=== PATIENT | female | born 1935 | race Caucasian/White ===

== ENCOUNTER → 2016-08-12 | Outpatient (CLI) | payer MEDICARE ==
[2013-09-12 06:43] VITALS: BP 153/79
[~2016-08-12] MED LIST: ASPI325T4 PO; CALC500T27 PO; LEVO125T5 PO; LORA10TA3 PO; PARO40TA3 PO; WHEA1POW5 PO
--- NOTE | 2016-08-12 13:22 | KCIC ---
PROCEDURE MR of the left knee HISTORY Surgery over 20 years ago. Pain throughout the left knee. TECHNIQUE Routine multiplanar sequences are obtained. COMPARISON None FINDINGS Degenerative tear of the medial meniscus. There is abnormal signal and mild distortion of the meniscus. Signal identified within the lateral meniscus, which does subtly violate the undersurface compatible with a mild degenerative tear. The anterior and posterior cruciate ligaments are intact. Medial collateral ligament intact. Iliotibial band unremarkable. Fibular collateral ligament demonstrates mild signal and thickening at its femoral attachment compatible with degeneration but no rupture or laxity. Biceps femoris tendon is intact. There is a high-grade tear or rupture of the popliteus tendon at the femoral attachment. The patellar tendon and quadriceps tendon are intact. Small joint effusion. Small joint effusion. No evidence of osteochondral loose body. Severe chondromalacia of the medial joint compartment. Mild chondromalacia at the posterior lateral tibial plateau. Chondromalacia at the patella, greatest superiorly where it is moderate. No bone lesion or acute macro fracture. Subchondral marrow edema, mild, at the posterior nonweightbearing lateral femoral condyle where there is overlying moderate chondromalacia. Narrow but elongated Corey cyst identified, measuring 11 cm length. Mild soft tissue edema or inflammation anterior to the patellar tendon. IMPRESSION 1. Medial meniscal tear. 2. Lateral meniscal tear. 3. Primary osteoarthritis, greatest at the medial joint compartment. 4. High-grade tear/rupture of the popliteus tendon at the femoral attachment. Electronically signed by: Irvin Wooten MD (Aug 12, 2016 13:20:15)
== END | disposition home or self-care (01) ==
LOC: KCIC MRI 11:16
PROVIDERS: ATTEND Orthopaedic Surgery
DX: M17.12 Unilateral primary osteoarthritis, left knee (principal)
CPT/HCPCS: 73721

== ENCOUNTER 2017-12-01 16:04 | Emergency (ER) | payer MEDICARE ==
[2017-12-01 18:02] LABS: ADD MAN DIFF? NO
[2017-12-01 18:05] LABS: BASO # 0.1 x10^3/uL (0.0-0.2); BASO % 1 % (0-3); EOS # 0.1 x10^3/uL (0.0-0.7); EOS % 1 % (0-3); HEMATOCRIT 36.2 % (36.0-47.0); HEMOGLOBIN 12.3 g/dL (12.0-15.5); LYMPH % 16 % (24-48); MEAN CORPUSCULAR HEMOGLOBIN 29 pg (25-35); MEAN CORPUSCULAR HGB CONC 34 g/dL (31-37); MEAN CORPUSCULAR VOLUME 85 fL (79-100); MONO # 1.4 x10^3/uL (0.0-1.1); MONO % 11 % (0-9); NEUT # 9.4 x10^3uL (1.8-7.7); NEUT % 72 % (31-73); PLATELET COUNT 369 x10^3/uL (140-400); RED BLOOD COUNT 4.25 x10^6/uL (3.50-5.40); RED CELL DISTRIBUTION WIDTH 13.2 % (11.5-14.5)
[2017-12-01] MEDS: IV NORMAL SALINE 1000ML BAG 500 ML IV (18:10)
[2017-12-01] MEDS: IPRATRPIUM/ALBUTEROL 0.5/2.5MG 3 ML NEBU. NEB (18:13)
[2017-12-01 18:22] LABS: ANION GAP 10 (6-14); BLOOD UREA NITROGEN 9 mg/dL (7-20); CALCIUM 9.7 mg/dL (8.5-10.1); CARBON DIOXIDE 26 mmol/L (21-32); CHLORIDE 98 mmol/L (98-107); GLUCOSE 111 mg/dL (70-99); POTASSIUM 3.7 mmol/L (3.5-5.1); SODIUM 134 mmol/L (136-145)
== END 2017-12-01 19:36 | disposition home or self-care (01) ==
LOC: ER 16:04
DX: J18.1 Lobar pneumonia, unspecified organism (principal); Z88.0 Allergy status to penicillin; Z88.5 Allergy status to narcotic agent; Z88.8 Allergy status to other drugs, medicaments and biological substances; Z88.4 Allergy status to anesthetic agent
CPT/HCPCS: 36415; 71046; 80048; 85025; 94640; 99285-25; J7030; J7620

== ENCOUNTER 2018-03-10 13:28 | Inpatient (IN) | payer MEDICARE ==
[~2018-03-10] VITALS: Ht 157.5 cm; Wt 64.4 kg
[~2018-03-10 13:28] MED LIST changes: -ASPI325T4 PO; +ASPI325T8 PO; -CALC500T27 PO; +CALC500T30 PO; +LEVO750T31 PO
[2018-03-10] MEDS ORDERED: IV NORMAL SALINE 1000ML BAG 1,000 ML IV SCH (13:51)
[2018-03-10] MEDS ORDERED: IOHEXOL 300 MG/ML 100ML VIAL. IV ONE (14:00)
[2018-03-10] MEDS ORDERED: CONTRAST GIVEN. MC PRN (14:15)
[2018-03-10 14:31] LABS: BASO # 0.1 x10^3/uL (0.0-0.2); BASO % 0 % (0-3); EOS # 0.1 x10^3/uL (0.0-0.7); EOS % 0 % (0-3); HEMATOCRIT 44.7 % (36.0-47.0); HEMOGLOBIN 14.7 g/dL (12.0-15.5); LYMPH # 2.2 x10^3/uL (1.0-4.8); LYMPH % 8 % (24-48); MEAN CORPUSCULAR HEMOGLOBIN 28 pg (25-35); MEAN CORPUSCULAR HGB CONC 33 g/dL (31-37); MEAN CORPUSCULAR VOLUME 84 fL (79-100); MONO # 1.2 x10^3/uL (0.0-1.1); MONO % 5 % (0-9); NEUT # 22.3 x10^3uL (1.8-7.7); NEUT % 86 % (31-73); PLATELET COUNT 416 x10^3/uL (140-400); RED BLOOD COUNT 5.29 x10^6/uL (3.50-5.40); RED CELL DISTRIBUTION WIDTH 15.5 % (11.5-14.5); WHITE BLOOD COUNT 25.9 x10^3/uL (4.0-11.0)
[2018-03-10 14:46] LABS: ALBUMIN 4.5 g/dL (3.4-5.0); DIRECT BILIRUBIN 0.1 mg/dL (0.0-0.2); TOTAL BILIRUBIN 0.4 mg/dL (0.2-1.0); TOTAL PROTEIN 8.8 g/dL (6.4-8.2)
[2018-03-10 14:47] LABS: CREATININE ISTAT 0.8 mg/dL (0.5-1.4); HEMOGLOBIN ISTAT 9.2 g/dL (12-15); ION CA ISTAT 0.8 mmol/L (1.13-1.32); POTASSIUM ISTAT 2.9 mmol/L (3.5-5.0)
[2018-03-10] MEDS ORDERED: POTASSIUM CHLORIDE 20 MEQ TABLET.ER. PO ONE (15:00)
[2018-03-10] MEDS ORDERED: POTASSIUM CHLORIDE 20MEQ 50 ML IV SCH (15:00)
[2018-03-10 15:15] LABS: % BANDS 1 % (0-9); % LYMPHS 7 % (24-48); % MONOS 5 % (0-10); % SEGS 87 % (35-66); MAGNESIUM 2.4 mg/dL (1.8-2.4); POTASSIUM 3.8 mmol/L (3.5-5.1)
[2018-03-10 15:17] LABS: PLT ESTIMATE ADEQUATE (ADEQUATE)
[2018-03-10 15:20] LABS: CALCIUM 10.2 mg/dL (8.5-10.1); CREATININE 1.5 mg/dL (0.6-1.0); GFR 33.1; POTASSIUM 3.8 mmol/L (3.5-5.1)
--- NOTE | 2018-03-10 15:23 | PHYS DOC ---
Past Medical History Past Medical History: Pneumonia Additional Past Medical Histor: BOWEL OBSTRUCTIONS Past Surgical History: No Surgical History Additional Past Surgical Histo: MUTILPE BOWEL SURGERIES Alcohol Use: None Drug Use: None Adult General Chief Complaint Chief Complaint: DIARRHEA HPI HPI Patient is an 83-year-old female presents to the emergency department, along with her son. The patient's son states that the patient was recently diagnosed with pneumonia and had been on antibiotics a few weeks ago, and has been getting increasingly weak over the past few days. She developed some diarrhea today, up to about 8-10 times since this morning. The patient does report some mild generalized abdominal soreness. There've been no reports of vomiting, fever , chest pain, and the patient has not had any more coughing recently, and is not more short of breath than normal. She has not had any fevers or chills. There are no alleviating, or exacerbating factors to her symptoms. The patient is somewhat of a limited historian, secondary to what appears to be underlying confusion. Review of Systems Review of Systems Constitutional: Denies fever or chills [] Eyes: Denies change in visual acuity, redness, or eye pain [] HENT: Denies nasal congestion or sore throat [] Respiratory: Denies cough or shortness of breath [] Cardiovascular: The patient denies any shortness of breath, chest pain, palpitations, or orthopnea [] GI: No additional information not addressed in HPI [] : Denies dysuria or hematuria [] Musculoskeletal: Denies back pain or joint pain [] Integument: Denies rash or skin lesions [] Neurologic: Denies headache, focal weakness or sensory changes. Reports some generalized weakness. [] Endocrine: Denies polyuria or polydipsia [] All other systems were reviewed and found to be within normal limits, except as documented in this note. Current Medications Current Medications Current Medications Medications (Trade) Dose Ordered Sig/Emily Start Time Stop Time Status Last Admin Dose Admin Info (CONTRAST GIVEN -- Rx MONITORING) 1 each PRN DAILY PRN 03/10/18 14:15 03/12/18 14:14 Iohexol (Omnipaque 300 Mg/ml) 75 ml 1X ONCE 03/10/18 14:00 03/10/18 14:01 DC 03/10/18 14:00 75 ML Potassium Chloride 40 meq/ Sodium Chloride 520 ml @ 130 mls/hr ONCE ONCE 03/10/18 15:30 03/10/18 15:35 DC Potassium Chloride/Water 50 ml @ 50 mls/hr Q1H 03/10/18 15:00 03/10/18 16:59 UNV Potassium Chloride (Klor-Con) 40 meq 1X ONCE 03/10/18 15:00 03/10/18 15:35 DC Ringer's Solution 1,000 ml @ 125 mls/hr 1X ONCE 03/10/18 15:45 03/10/18 23:44 Sodium Chloride 500 ml @ 125 mls/hr ONCE ONCE 03/10/18 15:30 03/10/18 15:30 DC Allergies Allergies Allergies Coded Allergies Type Severity Reaction Last Updated Verified Penicillins Allergy Intermediate 09/07/13 Yes codeine Allergy Intermediate 09/07/13 Yes morphine Allergy Intermediate Hives 09/07/13 No piroxicam Allergy Intermediate 09/07/13 Yes procaine Allergy Intermediate 09/07/13 Yes propoxyphene Allergy Intermediate 09/07/13 Yes Physical Exam Physical Exam PHYSICAL EXAM: CONSTITUTIONAL: Well developed, well nourished HEAD: normocephalic, atraumatic EENT: PERRL, EOMI. there is a small left-sided subconjunctival hemorrhage, the remainder of the conjunctivae are normal,sclerae non-icteric; moist mucous membranes. NECK: Supple, non-tender; no meningismus. LUNGS: Lungs CTA, breathing even and unlabored. Normal air movement. HEART: Regular rate and rhythm, no murmur CHEST: No deformity; non-tender ABDOMEN: The abdomen is soft, normal bowel sounds are present, there is mild diffuse tenderness to palpation in the mid left abdomen, without rebound or guarding, no masses or bruits. EXTREM: Normal ROM; no deformity, no calf tenderness. Normal pulses palpable in all extremities. There is no pedal edema. SKIN: No rash; no diaphoresis NEURO: Alert; normal speech and cognition; CN's grossly intact; strength grossly intact without focal deficit. BACK: No CVA TTP. Current Patient Data Vital Signs Vital Signs Date Time Temp Pulse Resp B/P (MAP) Pulse Ox O2 Delivery O2 Flow Rate FiO2 03/10/18 14:00 98.3 84 18 161/90 (113) 99 Room Air 98.3 Lab Values Laboratory Tests Test 03/10/18 14:15 03/10/18 14:39 White Blood Count 25.9 x10^3/uL (4.0-11.0) H Red Blood Count 5.29 x10^6/uL (3.50-5.40) Hemoglobin 14.7 g/dL (12.0-15.5) Hematocrit 44.7 % (36.0-47.0) Mean Corpuscular Volume 84 fL (79-100) Mean Corpuscular Hemoglobin 28 pg (25-35) Mean Corpuscular Hemoglobin Concent 33 g/dL (31-37) Red Cell Distribution Width 15.5 % (11.5-14.5) H Platelet Count 416 x10^3/uL (140-400) H Neutrophils (%) (Auto) 86 % (31-73) H Lymphocytes (%) (Auto) 8 % (24-48) L Monocytes (%) (Auto) 5 % (0-9) Eosinophils (%) (Auto) 0 % (0-3) Basophils (%) (Auto) 0 % (0-3) Neutrophils # (Auto) 22.3 x10^3uL (1.8-7.7) H Lymphocytes # (Auto) 2.2 x10^3/uL (1.0-4.8) Monocytes # (Auto) 1.2 x10^3/uL (0.0-1.1) H Eosinophils # (Auto) 0.1 x10^3/uL (0.0-0.7) Basophils # (Auto) 0.1 x10^3/uL (0.0-0.2) Segmented Neutrophils % 87 % (35-66) H Band Neutrophils % 1 % (0-9) Lymphocytes % 7 % (24-48) L Monocytes % 5 % (0-10) Platelet Estimate Adequate (ADEQUATE) Sodium Level 141 mmol/L (136-145) Potassium Level 3.8 mmol/L (3.5-5.1) Chloride Level 99 mmol/L (98-107) Carbon Dioxide Level 25 mmol/L (21-32) Anion Gap 17 (6-14) H 16 mmol/L (6-14) H Blood Urea Nitrogen 18 mg/dL (7-20) Creatinine 1.5 mg/dL (0.6-1.0) H Estimated GFR (Cockcroft-Gault) 33.1 Glucose Level 119 mg/dL (70-99) H 85 mg/dL (70-99) Lactic Acid Level 2.1 mmol/L (0.4-2.0) H Calcium Level 10.2 mg/dL (8.5-10.1) H Magnesium Level 2.4 mg/dL (1.8-2.4) Total Bilirubin 0.4 mg/dL (0.2-1.0) Direct Bilirubin 0.1 mg/dL (0.0-0.2) Aspartate Amino Transferase (AST) 34 U/L (15-37) Alanine Aminotransferase (ALT) 32 U/L (14-59) Alkaline Phosphatase 116 U/L (46-116) Total Protein 8.8 g/dL (6.4-8.2) H Albumin 4.5 g/dL (3.4-5.0) Lipase 290 U/L (73-393) POC Hemoglobin 9.2 g/dL (12-15) L POC Hematocrit 27 % (36-40) L POC Sodium 147 mmol/L (135-145) H POC Potassium 2.9 mmol/L (3.5-5.0) L POC Chloride 115 mmol/L (98-110) H POC Total CO2 20 mmol/L (23-32) L POC Blood Urea Nitrogen 14 mg/dL (8-26) POC Creatinine 0.8 mg/dL (0.5-1.4) POC Ionized Calcium (Margot) 0.80 mmol/L (1.13-1.32) L Laboratory Tests 03/10/18 14:15 Laboratory Tests 03/10/18 14:15 03/10/18 14:39 EKG EKG [] Radiology/Procedures Radiology/Procedures PROCEDURE: CT ABD PELV W/ IV CONTRST ONLY Examination: CT of the abdomen pelvis with IV contrast HISTORY: History of abdominal pain, diarrhea COMPARISON: 09/05/2013 TECHNIQUE: Axial CT images of the abdomen pelvis were performed with IV contrast. Coronal and sagittal reformats are performed Exposure: One or more of the following individualized dose reduction techniques were utilized for this examination: 1. Automated exposure control 2. Adjustment of the mA and/or kV according to patient size 3. Use of iterative reconstruction technique FINDINGS: Mild emphysematous changes identified in the bibasilar lungs. Bibasilar lung airspace opacities likely atelectasis. No evidence of free air identified in the abdomen. The visualized liver, spleen, adrenals grossly appears unremarkable. Cholecystectomy clips identified. Horseshoe kidney identified. The bilateral kidneys enhance symmetrically Multiple dilated small bowel loops identified in the abdomen measuring up to 4.5 cm in transverse dimension. There is a transition point identified just proximal to the anterior abdominal ventral hernia containing small bowel loop. There is extension of the dilated small bowel loop in the left lateral ventricle hernia. This hernia also contains loop of large bowel. Moderate aortic atherosclerosis. Urinary bladder is mildly distended. Moderate degenerative changes lumbar spine. IMPRESSION: 1. Findings consistent with small bowel obstruction. There are multiple dilated small bowel loops identified within the abdomen. There is anterior abdominal wall midline ventral hernia containing loop of small bowel. A transition point is identified in the small bowel loop just proximal to the anterior abdominal wall hernia containing bowel loop, best visualized on series 2 image 64. A portion of the dilated small bowel loop is herniated also into the left lateral ventricle hernia. 2. Horseshoe kidney. 3. Moderate size hiatal hernia. Course & Med Decision Making Course & Med Decision Making Pertinent Labs and Imaging studies reviewed. (See chart for details) [3:00 PM: I reviewed the patient's CT images, reading from the radiologist is currently pending. It appears to me that the patient has a small bowel obstruction, related to her hernia in the left lower quadrant. This was not palpable on initial exam, it is some laxity in the patient's abdominal wall soft tissues, although] on repeat exam, there is a palpable hernia, which appears to be easily reduced. However appears to slide out easily with additional increased abdominal pressure. I initially requested an i-STAT be performed to expedite the patient's passage to CT scan, but this was not initially performed by the nurse. After realizing this, the nurse went and redrew an i-STAT from the IV which had been saline lock. The patient's hemoglobin on the i-STAT is 9.2, which is a discrepancy compared to her values on the CBC from lab, which was from the patient's initial stick. Her potassium is low on the i-STAT, I suspect the values on the ice and might be related to saline contamination. Thus, I will order a basic chemistry panel from the blood sent to lab on the original blood stick, to confirm the patient's left her lites. I discussed the case both with her PCP, Dr. Valencia, as well as Dr. Call, on-call for the patient's surgeon, Dr. Gonzalez , the patient will be admitted for further evaluation and treatment. 3:50 PM: The patient's condition remains relatively stable. The patient will be admitted. Dragon Disclaimer Dragon Disclaimer This electronic medical record was generated, in whole or in part, using a voice recognition dictation system. Departure Departure Impression: Primary Impression: Small bowel obstruction Additional Impression: Abdominal hernia Disposition: ADMITTED INPATIENT Admitting Physician: Yamilet Valencia Condition: STABLE Referrals: YAMILET VALENCIA MD (PCP) Problem Qualifiers RADHA BLACKMON MD Mar 10, 2018 15:23
[2018-03-10] MEDS ORDERED: POTASSIUM CHLORIDE 40 MEQ in IV NORMAL SALINE 500ML BAG 500 ML IV ONE (15:30)
[2018-03-10] MEDS ORDERED: IV NORMAL SALINE 500ML BAG 500 ML IV ONE (15:30)
--- NOTE | 2018-03-10 15:32 | RAD ---
Examination: CT of the abdomen pelvis with IV contrast HISTORY: History of abdominal pain, diarrhea COMPARISON: 09/05/2013 TECHNIQUE: Axial CT images of the abdomen pelvis were performed with IV contrast. Coronal and sagittal reformats are performed Exposure: One or more of the following individualized dose reduction techniques were utilized for this examination: 1. Automated exposure control 2. Adjustment of the mA and/or kV according to patient size 3. Use of iterative reconstruction technique FINDINGS: Mild emphysematous changes identified in the bibasilar lungs. Bibasilar lung airspace opacities likely atelectasis. No evidence of free air identified in the abdomen. The visualized liver, spleen, adrenals grossly appears unremarkable. Cholecystectomy clips identified. Horseshoe kidney identified. The bilateral kidneys enhance symmetrically Multiple dilated small bowel loops identified in the abdomen measuring up to 4.5 cm in transverse dimension. There is a transition point identified just proximal to the anterior abdominal ventral hernia containing small bowel loop. There is extension of the dilated small bowel loop in the left lateral ventricle hernia. This hernia also contains loop of large bowel. Moderate aortic atherosclerosis. Urinary bladder is mildly distended. Moderate degenerative changes lumbar spine. IMPRESSION: 1. Findings consistent with small bowel obstruction. There are multiple dilated small bowel loops identified within the abdomen. There is anterior abdominal wall midline ventral hernia containing loop of small bowel. A transition point is identified in the small bowel loop just proximal to the anterior abdominal wall hernia containing bowel loop, best visualized on series 2 image 64. A portion of the dilated small bowel loop is herniated also into the left lateral ventricle hernia. 2. Horseshoe kidney. 3. Moderate size hiatal hernia. Electronically signed by: Rom Ellis MD (03/10/2018 3:28 PM) [place] [id number]
[2018-03-10] MEDS ORDERED: IV RINGERS,LACTATED 1000ML 1,000 ML IV ONE (15:45)
[2018-03-10 19:15] VITALS: BP 153/77
[2018-03-10] MEDS ORDERED: fentaNYL PF VIAL 100 MCG/2 ML VIAL IV PRN (21:00)
[2018-03-10] MEDS ORDERED: C.DIFF MED SCREEN BY RX. MC ONE (21:30)
[2018-03-10 23:00] VITALS: BP 136/64
[2018-03-10] MEDS ORDERED: ASPI81TA50 PO (23:40)
[2018-03-10] MEDS ORDERED: POLY17PO29 PO ×2 (23:40)
[2018-03-10] MEDS ORDERED: LACT1CAP21 PO (23:40)
[2018-03-10] MEDS ORDERED: LEVO75TA5 PO (23:40)
[2018-03-10] MEDS ORDERED: CALC600T4 PO (23:40)
[2018-03-10] MEDS ORDERED: MULT-98 PO (23:40)
[2018-03-11 03:00] VITALS: BP 143/80
[2018-03-11 07:00] VITALS: BP 128/65
--- NOTE | 2018-03-11 07:54 | PDOC ---
PROGRESS NOTES Subjective Subjective Patient denies nausea or abdominal pain at this time. Objective Objective Vital Signs Date Time Temp Pulse Resp B/P (MAP) Pulse Ox O2 Delivery O2 Flow Rate FiO2 03/11/18 03:00 98.0 81 20 143/80 (101) 96 98.0 03/10/18 21:30 Room Air Intake and Output 03/11/18 07:00 Intake Total 0 ml Balance 0 ml Intake Oral 0 ml # Voids 2 Physical Exam Abdomen: Normal bowel sounds, Soft, Other (large soft hernia left abdomen, diffuse TTP without guarding or rebound) Heart: Regular rate Extremities: No edema General: Alert, Oriented X3 (somewhat forgetful), No acute distress Lungs: Clear to auscultation Assessment Assessment Problems Medical Problems: (1) Abdominal hernia Status: Acute (2) Small bowel obstruction Status: Acute Plan Plan of Care 1. SBO with abdominal hernia - good BS present. Continue NPO and start IVF for hydration. Await General Surgery consult. Negative for C difficile. 2. hypokalemia - recheck lab this AM and supplement if needed. 3. hypothyroidism - continue home medication. 4. chronic depression and anxiety - stable, continue Paxil. 5. mild memory loss - patient appears at baseline, continue supportive care. 6. glucose intolerance - has been diet-controlled for her. Comment Review of Relevant I have reviewed the following items sima (where applicable) has been applied. Labs Laboratory Tests Test 03/10/18 13:51 03/10/18 14:15 03/10/18 14:39 Clostridium difficile Toxin B Gene Negative (Negative) White Blood Count 25.9 x10^3/uL (4.0-11.0) Red Blood Count 5.29 x10^6/uL (3.50-5.40) Hemoglobin 14.7 g/dL (12.0-15.5) Hematocrit 44.7 % (36.0-47.0) Mean Corpuscular Volume 84 fL (79-100) Mean Corpuscular Hemoglobin 28 pg (25-35) Mean Corpuscular Hemoglobin Concent 33 g/dL (31-37) Red Cell Distribution Width 15.5 % (11.5-14.5) Platelet Count 416 x10^3/uL (140-400) Neutrophils (%) (Auto) 86 % (31-73) Lymphocytes (%) (Auto) 8 % (24-48) Monocytes (%) (Auto) 5 % (0-9) Eosinophils (%) (Auto) 0 % (0-3) Basophils (%) (Auto) 0 % (0-3) Neutrophils # (Auto) 22.3 x10^3uL (1.8-7.7) Lymphocytes # (Auto) 2.2 x10^3/uL (1.0-4.8) Monocytes # (Auto) 1.2 x10^3/uL (0.0-1.1) Eosinophils # (Auto) 0.1 x10^3/uL (0.0-0.7) Basophils # (Auto) 0.1 x10^3/uL (0.0-0.2) Segmented Neutrophils % 87 % (35-66) Band Neutrophils % 1 % (0-9) Lymphocytes % 7 % (24-48) Monocytes % 5 % (0-10) Platelet Estimate Adequate (ADEQUATE) Sodium Level 141 mmol/L (136-145) Potassium Level 3.8 mmol/L (3.5-5.1) Chloride Level 99 mmol/L (98-107) Carbon Dioxide Level 25 mmol/L (21-32) Anion Gap 17 (6-14) 16 mmol/L (6-14) Blood Urea Nitrogen 18 mg/dL (7-20) Creatinine 1.5 mg/dL (0.6-1.0) Estimated GFR (Cockcroft-Gault) 33.1 Glucose Level 119 mg/dL (70-99) 85 mg/dL (70-99) Lactic Acid Level 2.1 mmol/L (0.4-2.0) Calcium Level 10.2 mg/dL (8.5-10.1) Magnesium Level 2.4 mg/dL (1.8-2.4) Total Bilirubin 0.4 mg/dL (0.2-1.0) Direct Bilirubin 0.1 mg/dL (0.0-0.2) Aspartate Amino Transf (AST/SGOT) 34 U/L (15-37) Alanine Aminotransferase (ALT/SGPT) 32 U/L (14-59) Alkaline Phosphatase 116 U/L (46-116) Total Protein 8.8 g/dL (6.4-8.2) Albumin 4.5 g/dL (3.4-5.0) Lipase 290 U/L (73-393) Bedside Hemoglobin 9.2 g/dL (12-15) Bedside Hematocrit 27 % (36-40) Bedside Sodium 147 mmol/L (135-145) Bedside Potassium 2.9 mmol/L (3.5-5.0) Bedside Chloride 115 mmol/L (98-110) Bedside Total CO2 20 mmol/L (23-32) Bedside Blood Urea Nitrogen 14 mg/dL (8-26) Bedside Creatinine 0.8 mg/dL (0.5-1.4) Bedside Ionized Calcium (Margot) 0.80 mmol/L (1.13-1.32) Laboratory Tests Test 03/10/18 13:51 03/10/18 14:15 03/10/18 14:39 Clostridium difficile Toxin B Gene Negative (Negative) White Blood Count 25.9 x10^3/uL (4.0-11.0) Red Blood Count 5.29 x10^6/uL (3.50-5.40) Hemoglobin 14.7 g/dL (12.0-15.5) Hematocrit 44.7 % (36.0-47.0) Mean Corpuscular Volume 84 fL (79-100) Mean Corpuscular Hemoglobin 28 pg (25-35) Mean Corpuscular Hemoglobin Concent 33 g/dL (31-37) Red Cell Distribution Width 15.5 % (11.5-14.5) Platelet Count 416 x10^3/uL (140-400) Neutrophils (%) (Auto) 86 % (31-73) Lymphocytes (%) (Auto) 8 % (24-48) Monocytes (%) (Auto) 5 % (0-9) Eosinophils (%) (Auto) 0 % (0-3) Basophils (%) (Auto) 0 % (0-3) Neutrophils # (Auto) 22.3 x10^3uL (1.8-7.7) Lymphocytes # (Auto) 2.2 x10^3/uL (1.0-4.8) Monocytes # (Auto) 1.2 x10^3/uL (0.0-1.1) Eosinophils # (Auto) 0.1 x10^3/uL (0.0-0.7) Basophils # (Auto) 0.1 x10^3/uL (0.0-0.2) Segmented Neutrophils % 87 % (35-66) Band Neutrophils % 1 % (0-9) Lymphocytes % 7 % (24-48) Monocytes % 5 % (0-10) Platelet Estimate Adequate (ADEQUATE) Sodium Level 141 mmol/L (136-145) Potassium Level 3.8 mmol/L (3.5-5.1) Chloride Level 99 mmol/L (98-107) Carbon Dioxide Level 25 mmol/L (21-32) Anion Gap 17 (6-14) 16 mmol/L (6-14) Blood Urea Nitrogen 18 mg/dL (7-20) Creatinine 1.5 mg/dL (0.6-1.0) Estimated GFR (Cockcroft-Gault) 33.1 Glucose Level 119 mg/dL (70-99) 85 mg/dL (70-99) Lactic Acid Level 2.1 mmol/L (0.4-2.0) Calcium Level 10.2 mg/dL (8.5-10.1) Magnesium Level 2.4 mg/dL (1.8-2.4) Total Bilirubin 0.4 mg/dL (0.2-1.0) Direct Bilirubin 0.1 mg/dL (0.0-0.2) Aspartate Amino Transf (AST/SGOT) 34 U/L (15-37) Alanine Aminotransferase (ALT/SGPT) 32 U/L (14-59) Alkaline Phosphatase 116 U/L (46-116) Total Protein 8.8 g/dL (6.4-8.2) Albumin 4.5 g/dL (3.4-5.0) Lipase 290 U/L (73-393) Bedside Hemoglobin 9.2 g/dL (12-15) Bedside Hematocrit 27 % (36-40) Bedside Sodium 147 mmol/L (135-145) Bedside Potassium 2.9 mmol/L (3.5-5.0) Bedside Chloride 115 mmol/L (98-110) Bedside Total CO2 20 mmol/L (23-32) Bedside Blood Urea Nitrogen 14 mg/dL (8-26) Bedside Creatinine 0.8 mg/dL (0.5-1.4) Bedside Ionized Calcium (Margot) 0.80 mmol/L (1.13-1.32) Medications Current Medications Sodium Chloride 1,000 ml @ 100 mls/hr Q10H IV Last administered on 03/10/18at 13:51; Start 03/10/18 at 13:51; Stop 03/10/18 at 23:50; Status DC Iohexol (Omnipaque 300 Mg/ml) 75 ml 1X ONCE IV Last administered on 03/10/18at 14:00; Start 03/10/18 at 14:00; Stop 03/10/18 at 14:01; Status DC Info (CONTRAST GIVEN -- Rx MONITORING) 1 each PRN DAILY PRN MC SEE COMMENTS; Start 03/10/18 at 14:15; Stop 03/12/18 at 14:14 Potassium Chloride (Klor-Con) 40 meq 1X ONCE PO ; Start 03/10/18 at 15:00; Stop 03/10/18 at 15:35; Status DC Potassium Chloride/Water 50 ml @ 50 mls/hr Q1H IV ; Start 03/10/18 at 15:00; Stop 03/10/18 at 16:59; Status UNV Sodium Chloride 500 ml @ 125 mls/hr ONCE ONCE IV ; Start 03/10/18 at 15:30; Stop 03/10/18 at 15:30; Status DC Potassium Chloride 40 meq/ Sodium Chloride 520 ml @ 130 mls/hr ONCE ONCE IV ; Start 03/10/18 at 15:30; Stop 03/10/18 at 15:35; Status DC Ringer's Solution 1,000 ml @ 125 mls/hr 1X ONCE IV ; Start 03/10/18 at 15:45; Stop 03/10/18 at 23:44; Status DC Fentanyl Citrate (Fentanyl 2ml Vial) 25 mcg PRN Q2HR PRN IV SEVERE PAIN Last administered on 03/10/18at 21:00; Start 03/10/18 at 21:00 Ondansetron HCl (Zofran) 4 mg PRN Q6HRS PRN IV NAUSEA/VOMITING 1ST CHOICE; Start 03/10/18 at 21:00 Pharmacy Consult (C.diff Med Screen By Rx) 1 each 1X ONCE MC ; Start 03/10/18 at 21:30; Stop 03/10/18 at 21:31; Status DC Potassium Chloride/Dextrose/ Sod Cl 1,000 ml @ 100 mls/hr Q10H IV ; Start 03/11 at 07:45 Active Scripts Active Reported Culturelle (Lactobacillus Rhamnosus Gg) 1 Each Capsule 1-2 Each PO PRN DAILY PRN Calcium (Calcium Carbonate) 600 Mg Tablet 600 Mg PO BID Women's Daily Formula (Multivit With Calcium,Iron,Min) 1 Each Tablet 1 Each PO DAILY Miralax (Polyethylene Glycol 3350) 17 Gm Powd.pack 1 Packet PO PRN DAILY PRN Levothyroxine Sodium 75 Mcg Tablet 1 Tab PO DAILY Aspir-Low (Aspirin) 81 Mg Tablet. 1 Tab PO DAILY Paroxetine Hcl 40 Mg Tablet 60 Mg PO DAILY Loratadine 10 Mg Tablet 10 Mg PO DAILY Vitals/I & O Vital Sign - Last 24 Hours 03/10/18 03/10/18 03/10/18 03/10/18 14:00 15:00 16:00 17:00 Temp 98.3 98.3 Pulse 84 80 80 82 Resp 18 17 13 14 B/P (MAP) 161/90 (113) 150/65 (93) 150/70 (96) 150/65 (93) Pulse Ox 99 99 97 99 O2 Delivery Room Air Room Air Room Air Room Air 03/10/18 03/10/18 03/10/18 03/10/18 18:00 19:15 20:00 21:00 Temp 98.3 98.3 Pulse 82 82 Resp 14 20 16 B/P (MAP) 141/78 (99) 153/77 (102) Pulse Ox 98 98 98 O2 Delivery Room Air Room Air Room Air 03/10/18 03/10/18 03/11/18 21:30 23:00 03:00 Temp 99.2 98.0 99.2 98.0 Pulse 80 81 Resp 15 18 20 B/P (MAP) 136/64 (88) 143/80 (101) Pulse Ox 98 96 96 O2 Delivery Room Air Intake and Output 03/10/18 03/10/18 03/11/18 15:00 23:00 07:00 Intake Total 0 ml 0 ml Balance 0 ml 0 ml ERIKA WALSH MD Mar 11, 2018 07:54
--- NOTE | 2018-03-11 08:12 | PDOC2 ---
LINDSAY JAMISON CHEMICAL DEPENDENCY THERAPIST 03/11/18 0812: CONSULT Date of Consult Date of Consult DATE: 03/11/18 TIME: 08:00 Reason for Consult Reason for Consult: sbo, hernias Referring Physician Referring Physician: ER Identification/Chief Complaint Chief Complaint diarrhea Source Source: Caregiver (son), Chart review, Patient History of Present Illness Reason for Visit: Admitted with multiple episodes of diarrhea yesterday. abrupt onset of diarrhea , no real significant pain. She has a history of multiple bowel obstructions, multiple abdominal surgeries. Last operated [address] Peña Currently no pain, no n/v Past Medical History Pulmonary: Pneumonia Endocrine: Diabetes, Hypothyroidism Past Surgical History Past Surgical History: Hernia Repair Family History Family History: Other (noncontributory to current illness ) Social History No ALCOHOL: none Drugs: None Lives: with Family Current Problem List Problem List Problems Medical Problems: (1) Abdominal hernia Status: Acute (2) Small bowel obstruction Status: Acute Current Medications Current Medications Current Medications Sodium Chloride 1,000 ml @ 100 mls/hr Q10H IV Last administered on 03/10/18at 13:51; Start 03/10/18 at 13:51; Stop 03/10/18 at 23:50; Status DC Iohexol (Omnipaque 300 Mg/ml) 75 ml 1X ONCE IV Last administered on 03/10/18at 14:00; Start 03/10/18 at 14:00; Stop 03/10/18 at 14:01; Status DC Info (CONTRAST GIVEN -- Rx MONITORING) 1 each PRN DAILY PRN MC SEE COMMENTS; Start 03/10/18 at 14:15; Stop 03/12/18 at 14:14 Potassium Chloride (Klor-Con) 40 meq 1X ONCE PO ; Start 03/10/18 at 15:00; Stop 03/10/18 at 15:35; Status DC Potassium Chloride/Water 50 ml @ 50 mls/hr Q1H IV ; Start 03/10/18 at 15:00; Stop 03/10/18 at 16:59; Status UNV Sodium Chloride 500 ml @ 125 mls/hr ONCE ONCE IV ; Start 03/10/18 at 15:30; Stop 03/10/18 at 15:30; Status DC Potassium Chloride 40 meq/ Sodium Chloride 520 ml @ 130 mls/hr ONCE ONCE IV ; Start 03/10/18 at 15:30; Stop 03/10/18 at 15:35; Status DC Ringer's Solution 1,000 ml @ 125 mls/hr 1X ONCE IV ; Start 03/10/18 at 15:45; Stop 03/10/18 at 23:44; Status DC Fentanyl Citrate (Fentanyl 2ml Vial) 25 mcg PRN Q2HR PRN IV SEVERE PAIN Last administered on 03/10/18at 21:00; Start 03/10/18 at 21:00; Stop 03/11/18 at 07:57 ; Status DC Ondansetron HCl (Zofran) 4 mg PRN Q6HRS PRN IV NAUSEA/VOMITING 1ST CHOICE; Start 03/10/18 at 21:00 Pharmacy Consult (C.diff Med Screen By Rx) 1 each 1X ONCE MC ; Start 03/10/18 at 21:30; Stop 03/10/18 at 21:31; Status DC Potassium Chloride/Dextrose/ Sod Cl 1,000 ml @ 100 mls/hr Q10H IV ; Start 03/11 at 07:45 Levothyroxine Sodium (Synthroid) 75 mcg DAILY06 PO ; Start 03/11/18 at 09:00 Paroxetine HCl (Paxil) 60 mg DAILY PO ; Start 03/11/18 at 09:00 Acetaminophen (Tylenol) 1,000 mg PRN Q6HRS PRN PO pain; Start 03/11/18 at 08:00 Active Scripts Active Reported Culturelle (Lactobacillus Rhamnosus Gg) 1 Each Capsule 1-2 Each PO PRN DAILY PRN Calcium (Calcium Carbonate) 600 Mg Tablet 600 Mg PO BID Women's Daily Formula (Multivit With Calcium,Iron,Min) 1 Each Tablet 1 Each PO DAILY Miralax (Polyethylene Glycol 3350) 17 Gm Powd.pack 1 Packet PO PRN DAILY PRN Levothyroxine Sodium 75 Mcg Tablet 1 Tab PO DAILY Aspir-Low (Aspirin) 81 Mg Tablet.dr 1 Tab PO DAILY Paroxetine Hcl 40 Mg Tablet 60 Mg PO DAILY Loratadine 10 Mg Tablet 10 Mg PO DAILY Allergies Allergies: Coded Allergies: Penicillins (Verified Allergy, Intermediate, 09/07/13) codeine (Verified Allergy, Intermediate, 09/07/13) morphine (Unverified Allergy, Intermediate, Hives, 09/07/13) piroxicam (Verified Allergy, Intermediate, 09/07/13) procaine (Verified Allergy, Intermediate, 09/07/13) propoxyphene (Verified Allergy, Intermediate, 09/07/13) ROS General: No: Chills, Other (Fevers) PSYCHOLOGICAL ROS: No: Anxiety, Depression Eyes: No Blurry vision, No Double vision HEENT: No: Heacaches, Sore Throat Hematological and Lymphatic: No: Bleeding Problems, Blood Clots Respiratory: No: Cough, Shortness of breath Cardiovascular: No Chest Pain, No Palpitations Gastrointestinal: Yes Other (see hpi) Genitourinary: No Dysuria, No Retention Musculoskeletal: No Joint Pain, No Muscle Pain Neurological: No Confusion, No Numbness/Tingling Skin: No Pruritus, No Rash Physical Exam General: Alert, Oriented X3, Cooperative, No acute distress HEENT: PERRLA, Mucous membr. moist/pink Lungs: Clear to auscultation, Normal air movement Heart: Regular rate, Normal S1, Normal S2, No murmurs Abdomen: Soft, Other (ND, palpable hernias to RLQ and LLQ, partially reducable- -mild ttp) Extremities: No clubbing, No cyanosis Skin: No rashes, No breakdown Neuro: Normal gait, Normal speech Psych/Mental Status: Mental status NL, Mood NL MUSCULOSKELETAL: No deformity, No swelling Vitals VITALS Vital Signs Date Time Temp Pulse Resp B/P (MAP) Pulse Ox O2 Delivery O2 Flow Rate FiO2 03/11/18 07:00 98.1 77 16 128/65 (86) 97 Room Air 98.1 Labs Labs Laboratory Tests Test 03/10/18 13:51 03/10/18 14:15 03/10/18 14:39 Clostridium difficile Toxin B Gene Negative (Negative) White Blood Count 25.9 x10^3/uL (4.0-11.0) Red Blood Count 5.29 x10^6/uL (3.50-5.40) Hemoglobin 14.7 g/dL (12.0-15.5) Hematocrit 44.7 % (36.0-47.0) Mean Corpuscular Volume 84 fL (79-100) Mean Corpuscular Hemoglobin 28 pg (25-35) Mean Corpuscular Hemoglobin Concent 33 g/dL (31-37) Red Cell Distribution Width 15.5 % (11.5-14.5) Platelet Count 416 x10^3/uL (140-400) Neutrophils (%) (Auto) 86 % (31-73) Lymphocytes (%) (Auto) 8 % (24-48) Monocytes (%) (Auto) 5 % (0-9) Eosinophils (%) (Auto) 0 % (0-3) Basophils (%) (Auto) 0 % (0-3) Neutrophils # (Auto) 22.3 x10^3uL (1.8-7.7) Lymphocytes # (Auto) 2.2 x10^3/uL (1.0-4.8) Monocytes # (Auto) 1.2 x10^3/uL (0.0-1.1) Eosinophils # (Auto) 0.1 x10^3/uL (0.0-0.7) Basophils # (Auto) 0.1 x10^3/uL (0.0-0.2) Segmented Neutrophils % 87 % (35-66) Band Neutrophils % 1 % (0-9) Lymphocytes % 7 % (24-48) Monocytes % 5 % (0-10) Platelet Estimate Adequate (ADEQUATE) Sodium Level 141 mmol/L (136-145) Potassium Level 3.8 mmol/L (3.5-5.1) Chloride Level 99 mmol/L (98-107) Carbon Dioxide Level 25 mmol/L (21-32) Anion Gap 17 (6-14) 16 mmol/L (6-14) Blood Urea Nitrogen 18 mg/dL (7-20) Creatinine 1.5 mg/dL (0.6-1.0) Estimated GFR (Cockcroft-Gault) 33.1 Glucose Level 119 mg/dL (70-99) 85 mg/dL (70-99) Lactic Acid Level 2.1 mmol/L (0.4-2.0) Calcium Level 10.2 mg/dL (8.5-10.1) Magnesium Level 2.4 mg/dL (1.8-2.4) Total Bilirubin 0.4 mg/dL (0.2-1.0) Direct Bilirubin 0.1 mg/dL (0.0-0.2) Aspartate Amino Transf (AST/SGOT) 34 U/L (15-37) Alanine Aminotransferase (ALT/SGPT) 32 U/L (14-59) Alkaline Phosphatase 116 U/L (46-116) Total Protein 8.8 g/dL (6.4-8.2) Albumin 4.5 g/dL (3.4-5.0) Lipase 290 U/L (73-393) Bedside Hemoglobin 9.2 g/dL (12-15) Bedside Hematocrit 27 % (36-40) Bedside Sodium 147 mmol/L (135-145) Bedside Potassium 2.9 mmol/L (3.5-5.0) Bedside Chloride 115 mmol/L (98-110) Bedside Total CO2 20 mmol/L (23-32) Bedside Blood Urea Nitrogen 14 mg/dL (8-26) Bedside Creatinine 0.8 mg/dL (0.5-1.4) Bedside Ionized Calcium (Margot) 0.80 mmol/L (1.13-1.32) Laboratory Tests Test 03/10/18 13:51 03/10/18 14:15 03/10/18 14:39 Clostridium difficile Toxin B Gene Negative (Negative) White Blood Count 25.9 x10^3/uL (4.0-11.0) Red Blood Count 5.29 x10^6/uL (3.50-5.40) Hemoglobin 14.7 g/dL (12.0-15.5) Hematocrit 44.7 % (36.0-47.0) Mean Corpuscular Volume 84 fL (79-100) Mean Corpuscular Hemoglobin 28 pg (25-35) Mean Corpuscular Hemoglobin Concent 33 g/dL (31-37) Red Cell Distribution Width 15.5 % (11.5-14.5) Platelet Count 416 x10^3/uL (140-400) Neutrophils (%) (Auto) 86 % (31-73) Lymphocytes (%) (Auto) 8 % (24-48) Monocytes (%) (Auto) 5 % (0-9) Eosinophils (%) (Auto) 0 % (0-3) Basophils (%) (Auto) 0 % (0-3) Neutrophils # (Auto) 22.3 x10^3uL (1.8-7.7) Lymphocytes # (Auto) 2.2 x10^3/uL (1.0-4.8) Monocytes # (Auto) 1.2 x10^3/uL (0.0-1.1) Eosinophils # (Auto) 0.1 x10^3/uL (0.0-0.7) Basophils # (Auto) 0.1 x10^3/uL (0.0-0.2) Segmented Neutrophils % 87 % (35-66) Band Neutrophils % 1 % (0-9) Lymphocytes % 7 % (24-48) Monocytes % 5 % (0-10) Platelet Estimate Adequate (ADEQUATE) Sodium Level 141 mmol/L (136-145) Potassium Level 3.8 mmol/L (3.5-5.1) Chloride Level 99 mmol/L (98-107) Carbon Dioxide Level 25 mmol/L (21-32) Anion Gap 17 (6-14) 16 mmol/L (6-14) Blood Urea Nitrogen 18 mg/dL (7-20) Creatinine 1.5 mg/dL (0.6-1.0) Estimated GFR (Cockcroft-Gault) 33.1 Glucose Level 119 mg/dL (70-99) 85 mg/dL (70-99) Lactic Acid Level 2.1 mmol/L (0.4-2.0) Calcium Level 10.2 mg/dL (8.5-10.1) Magnesium Level 2.4 mg/dL (1.8-2.4) Total Bilirubin 0.4 mg/dL (0.2-1.0) Direct Bilirubin 0.1 mg/dL (0.0-0.2) Aspartate Amino Transf (AST/SGOT) 34 U/L (15-37) Alanine Aminotransferase (ALT/SGPT) 32 U/L (14-59) Alkaline Phosphatase 116 U/L (46-116) Total Protein 8.8 g/dL (6.4-8.2) Albumin 4.5 g/dL (3.4-5.0) Lipase 290 U/L (73-393) Bedside Hemoglobin 9.2 g/dL (12-15) Bedside Hematocrit 27 % (36-40) Bedside Sodium 147 mmol/L (135-145) Bedside Potassium 2.9 mmol/L (3.5-5.0) Bedside Chloride 115 mmol/L (98-110) Bedside Total CO2 20 mmol/L (23-32) Bedside Blood Urea Nitrogen 14 mg/dL (8-26) Bedside Creatinine 0.8 mg/dL (0.5-1.4) Bedside Ionized Calcium (Margot) 0.80 mmol/L (1.13-1.32) Assessment/Plan Assessment/Plan acute onset diarrhea VIH, SBO seems more c/w enteritis C diff negative will recheck plain films, fluids, bowel rest ALAINA CORBETT MD 03/11/18 1021: CONSULT Assessment/Plan Assessment/Plan Patient seen and examined by me is resting comfortably in bed states that she feels better than when she was admitted last night. Abdomen is soft nondistended with normal active bowel sounds hernia is reducible although due to the size the hernia returns soft nontender. Acute abdominal films show some continued gaseous distention the small bowel but improve since yesterday. Agree with Sandra assessment and plan would continue bowel rest repeat exam abdominal films in the a.m. LINDSAY JAMISON APRN Mar 11, 2018 08:12 ALAINA CORBETT MD Mar 11, 2018 10:21
--- NOTE | 2018-03-11 08:26 | HP ---
ADMIT DATE: 03/10/2018 CHIEF COMPLAINT: Diarrhea. HISTORY OF PRESENT ILLNESS: The patient is an 83-year-old female who presented to the Emergency Room with the above complaint. She reported the onset of multiple loose stools earlier on the day of admission. There was some mild abdominal pain accompanying this. She denied any recent emesis. Evaluation in the Emergency Room showed the patient to have a white blood count elevated to 25. A CT of the abdomen and pelvis showed a small-bowel obstruction with a ventral hernia. Treatment was started and she was admitted for further care. PAST MEDICAL HISTORY: Hypothyroidism, chronic depression and anxiety, osteopenia, allergic rhinitis, glucose intolerance, lumbar degenerative disk disease, irritable bowel syndrome, horseshoe kidney, multiple abdominal surgeries and mild memory loss. PAST SURGICAL HISTORY: Cholecystectomy, appendectomy, multiple ventral hernia repairs. ALLERGIES: The patient is allergic or intolerant to PENICILLIN, CODEINE, MORPHINE, PIROXICAM, PROCAINE and PROPOXYPHENE. HOME MEDICATIONS: Aspirin 81 mg daily, calcium 600 mg b.i.d., levothyroxine 75 mcg daily, loratadine 10 mg daily, paroxetine 60 mg daily, MiraLax 17 grams daily. FAMILY HISTORY: Noncontributory. SOCIAL HISTORY: The patient is and lives by herself, but her son is very supportive and visits her frequently. She quit smoking cigarettes many years ago. She does not drink alcohol to excess. REVIEW OF SYSTEMS: This is obtained partly from the patient's son as the patient does have some mild cognitive impairment. The patient is not aware of fever or chills. She denies cough or shortness of breath. She denies chest pain or palpitations. She denies constipation. She feels that her bowels were doing fairly well with her usual MiraLax daily until the onset of the diarrhea as in the HPI. She denies any emesis. She denies any abdominal pain at the time of this exam. She denies lower extremity edema. Her mood has been fairly good with her usual paroxetine. PHYSICAL EXAMINATION: GENERAL: The patient is alert and oriented x 3, although somewhat forgetful, resting comfortably in bed, in no acute distress. HEENT: PERRL. EOMI. The right sclera is clear. The left sclera shows a small subconjunctival hemorrhage. NECK: Supple, without lymphadenopathy. CHEST: Clear to auscultation. CARDIOVASCULAR: Regular rhythm. ABDOMEN: Soft, normoactive bowel sounds are present. There is a large soft ventral hernia on the left. The patient does not have guarding or rebound. EXTREMITIES: Without edema. ASSESSMENT AND PLAN: 1. Small-bowel obstruction with ventral hernia. The patient's exam appears to have improved overnight. She does have good bowel sounds present. We will continue her n.p.o. and start IV fluids for hydration. Await a General Surgery consult, but do not anticipate surgery at this time. The patient's stool is negative for Clostridium difficile. We will continue conservative care. 2. Hypokalemia. We will recheck lab this morning and continue supplementation if needed. 3. Hypothyroidism. Continue home medication. 4. Chronic depression and anxiety. This is fairly well controlled. Continue her usual Paxil. 5. Mild memory loss. The patient appears at her baseline mental status. Continue supportive care. 6. Glucose intolerance. This has been diet controlled for her. ERIKA WALSH MD DR: СЕРГЕЙ/sherman JOB#: [id number] / [id number] PETTY
[2018-03-11] MEDS: LEVOTHYROXINE 75 MCG TABLET PO SCH (08:57)
[2018-03-11] MEDS: ACETAMINOPHEN 500 MG TABLET PO PRN ×2 (08:57→18:09)
[2018-03-11] MEDS: POTASSIUM CL 20MEQ D5-0.45NACL 1,000 ML IV SCH ×2 (08:58→19:29)
[2018-03-11] MEDS: PARoxetine 20 MG TABLET PO SCH (08:58)
[2018-03-11 09:31] LABS: BILIRUBIN,URINE NEGATIVE (NEG); CLARITY,URINE CLEAR; COLOR,URINE YELLOW; NITRITE,URINE NEGATIVE (NEG); PH,URINE 6.5; PROTEIN,URINE NEGATIVE (NEG-TRACE); UROBILINOGEN,URINE 0.2 mg/dL (0.2 mg/dL)
[2018-03-11 09:44] LABS: BACTERIA,URINE 0 /HPF (0-FEW); RBC,URINE 0 /HPF (0-2); SQUAMOUS EPITHELIAL CELL,UR OCC /LPF
[2018-03-11 09:49] LABS: HEMATOCRIT 37.5 % (36.0-47.0); HEMOGLOBIN 12.2 g/dL (12.0-15.5); RED BLOOD COUNT 4.42 x10^6/uL (3.50-5.40); RED CELL DISTRIBUTION WIDTH 15.7 % (11.5-14.5); WHITE BLOOD COUNT 9.2 x10^3/uL (4.0-11.0)
--- NOTE | 2018-03-11 10:02 | RAD ---
Acute abdomen series with chest, 3 views, 03/11/2018: HISTORY: Shortness of breath, abdominal pain Gas is present in large and small bowel extending down through the level the rectum. There is mild gaseous distention of several small bowel loops. No free air is evident in the abdomen. There is a moderate to large hiatal hernia. No organomegaly is seen. Moderate multilevel degenerative change is evident in the spine. The heart size is normal. The lungs are clear. There is no evidence of pleural fluid. IMPRESSION: 1. Mild persistent gaseous distention of several small bowel loops compatible with ongoing partial small bowel obstruction. 2. Hiatal hernia. 3. No acute infiltrates. Electronically signed by: Walter Montgomery MD (03/11/2018 9:59 AM) [facility]
[2018-03-11 10:05] LABS: CALCIUM 8.7 mg/dL (8.5-10.1); CREATININE 0.9 mg/dL (0.6-1.0); GFR 59.7; POTASSIUM 4.2 mmol/L (3.5-5.1)
[2018-03-11 11:00] VITALS: BP 137/70
[2018-03-11 15:00] VITALS: BP 140/77
[2018-03-11] MEDS: ONDANSETRON PF 4 MG/2 ML VIAL. IV PRN (18:08)
[2018-03-11 19:59] VITALS: BP 149/79
[2018-03-11 23:50] VITALS: BP 152/84
[2018-03-12 03:59] VITALS: BP 130/76
[2018-03-12] MEDS: LEVOTHYROXINE 75 MCG TABLET PO SCH (05:38)
[2018-03-12] MEDS: POTASSIUM CL 20MEQ D5-0.45NACL 1,000 ML IV SCH ×2 (05:49→14:49)
[2018-03-12 07:00] VITALS: BP 153/84
[2018-03-12 07:18] LABS: CALCIUM 8.7 mg/dL (8.5-10.1); CREATININE 0.8 mg/dL (0.6-1.0); GFR 68.3; POTASSIUM 3.8 mmol/L (3.5-5.1)
[2018-03-12] MEDS: PARoxetine 20 MG TABLET PO SCH (08:14)
--- NOTE | 2018-03-12 08:52 | PDOC ---
PROGRESS NOTES Subjective Subjective feels better, denies pain, not sure if passing flatus Objective Objective Vital Signs Date Time Temp Pulse Resp B/P (MAP) Pulse Ox O2 Delivery O2 Flow Rate FiO2 03/12/18 07:00 98.4 76 19 153/84 (107) 96 Room Air 98.4 Intake and Output 03/12/18 07:00 Intake Total 1000 ml Output Total 1250 ml Balance -250 ml Intake Oral 0 ml IV Total 1000 ml Output Urine Total 1250 ml # Voids 2 # Bowel Movements 2 Physical Exam Abdomen: Soft, No tenderness Extremities: No clubbing, No cyanosis General: Alert, Oriented X3, Cooperative HEENT: Atraumatic Lungs: Clear to auscultation Neuro: Normal speech, Strength at 5/5 X4 ext Psych/Mental Status: Mental status NL Skin: No rashes Assessment Assessment Problems Medical Problems: (1) Abdominal hernia Status: Acute (2) Small bowel obstruction Status: Acute Plan Plan of Care SBO, clinically improved; will check films, if improvement could start liquids Comment Review of Relevant I have reviewed the following items sima (where applicable) has been applied. Labs Laboratory Tests Test 03/10/18 13:51 03/10/18 14:15 03/10/18 14:39 03/11/18 08:50 Clostridium difficile Toxin B Gene Negative (Negative) Ova and Parasites (LAB) Final report (.) Ova & Parasite Result 1 Comment (.) White Blood Count 25.9 x10^3/uL (4.0-11.0) Red Blood Count 5.29 x10^6/uL (3.50-5.40) Hemoglobin 14.7 g/dL (12.0-15.5) Hematocrit 44.7 % (36.0-47.0) Mean Corpuscular Volume 84 fL (79-100) Mean Corpuscular Hemoglobin 28 pg (25-35) Mean Corpuscular Hemoglobin Concent 33 g/dL (31-37) Red Cell Distribution Width 15.5 % (11.5-14.5) Platelet Count 416 x10^3/uL (140-400) Neutrophils (%) (Auto) 86 % (31-73) Lymphocytes (%) (Auto) 8 % (24-48) Monocytes (%) (Auto) 5 % (0-9) Eosinophils (%) (Auto) 0 % (0-3) Basophils (%) (Auto) 0 % (0-3) Neutrophils # (Auto) 22.3 x10^3uL (1.8-7.7) Lymphocytes # (Auto) 2.2 x10^3/uL (1.0-4.8) Monocytes # (Auto) 1.2 x10^3/uL (0.0-1.1) Eosinophils # (Auto) 0.1 x10^3/uL (0.0-0.7) Basophils # (Auto) 0.1 x10^3/uL (0.0-0.2) Segmented Neutrophils % 87 % (35-66) Band Neutrophils % 1 % (0-9) Lymphocytes % 7 % (24-48) Monocytes % 5 % (0-10) Platelet Estimate Adequate (ADEQUATE) Sodium Level 141 mmol/L (136-145) Potassium Level 3.8 mmol/L (3.5-5.1) Chloride Level 99 mmol/L (98-107) Carbon Dioxide Level 25 mmol/L (21-32) Anion Gap 17 (6-14) 16 mmol/L (6-14) Blood Urea Nitrogen 18 mg/dL (7-20) Creatinine 1.5 mg/dL (0.6-1.0) Estimated GFR (Cockcroft-Gault) 33.1 Glucose Level 119 mg/dL (70-99) 85 mg/dL (70-99) Lactic Acid Level 2.1 mmol/L (0.4-2.0) Calcium Level 10.2 mg/dL (8.5-10.1) Magnesium Level 2.4 mg/dL (1.8-2.4) Total Bilirubin 0.4 mg/dL (0.2-1.0) Direct Bilirubin 0.1 mg/dL (0.0-0.2) Aspartate Amino Transf (AST/SGOT) 34 U/L (15-37) Alanine Aminotransferase (ALT/SGPT) 32 U/L (14-59) Alkaline Phosphatase 116 U/L (46-116) Total Protein 8.8 g/dL (6.4-8.2) Albumin 4.5 g/dL (3.4-5.0) Lipase 290 U/L (73-393) Bedside Hemoglobin 9.2 g/dL (12-15) Bedside Hematocrit 27 % (36-40) Bedside Sodium 147 mmol/L (135-145) Bedside Potassium 2.9 mmol/L (3.5-5.0) Bedside Chloride 115 mmol/L (98-110) Bedside Total CO2 20 mmol/L (23-32) Bedside Blood Urea Nitrogen 14 mg/dL (8-26) Bedside Creatinine 0.8 mg/dL (0.5-1.4) Bedside Ionized Calcium (Margot) 0.80 mmol/L (1.13-1.32) Urine Collection Type Unknown Urine Color Yellow Urine Clarity Clear Urine pH 6.5 Urine Specific Opal 1.025 Urine Protein Negative mg/dL (NEG-TRACE) Urine Glucose (UA) Negative mg/dL (NEG) Urine Ketones (Stick) Negative mg/dL (NEG) Urine Blood Negative (NEG) Urine Nitrite Negative (NEG) Urine Bilirubin Negative (NEG) Urine Urobilinogen Dipstick 0.2 mg/dL (0.2 mg/dL) Urine Leukocyte Esterase Negative (NEG) Urine RBC 0 /HPF (0-2) Urine WBC 1-4 /HPF (0-4) Urine Squamous Epithelial Cells Occ /LPF Urine Bacteria 0 /HPF (0-FEW) Test 03/11/18 09:10 03/12/18 05:35 White Blood Count 9.2 x10^3/uL (4.0-11.0) Red Blood Count 4.42 x10^6/uL (3.50-5.40) Hemoglobin 12.2 g/dL (12.0-15.5) Hematocrit 37.5 % (36.0-47.0) Mean Corpuscular Volume 85 fL (79-100) Mean Corpuscular Hemoglobin 28 pg (25-35) Mean Corpuscular Hemoglobin Concent 33 g/dL (31-37) Red Cell Distribution Width 15.7 % (11.5-14.5) Platelet Count 306 x10^3/uL (140-400) Sodium Level 145 mmol/L (136-145) 143 mmol/L (136-145) Potassium Level 4.2 mmol/L (3.5-5.1) 3.8 mmol/L (3.5-5.1) Chloride Level 108 mmol/L (98-107) 108 mmol/L (98-107) Carbon Dioxide Level 26 mmol/L (21-32) 26 mmol/L (21-32) Anion Gap 11 (6-14) 9 (6-14) Blood Urea Nitrogen 13 mg/dL (7-20) 5 mg/dL (7-20) Creatinine 0.9 mg/dL (0.6-1.0) 0.8 mg/dL (0.6-1.0) Estimated GFR (Cockcroft-Gault) 59.7 68.3 Glucose Level 113 mg/dL (70-99) 110 mg/dL (70-99) Calcium Level 8.7 mg/dL (8.5-10.1) 8.7 mg/dL (8.5-10.1) Laboratory Tests Test 03/11/18 09:10 03/12/18 05:35 White Blood Count 9.2 x10^3/uL (4.0-11.0) Red Blood Count 4.42 x10^6/uL (3.50-5.40) Hemoglobin 12.2 g/dL (12.0-15.5) Hematocrit 37.5 % (36.0-47.0) Mean Corpuscular Volume 85 fL (79-100) Mean Corpuscular Hemoglobin 28 pg (25-35) Mean Corpuscular Hemoglobin Concent 33 g/dL (31-37) Red Cell Distribution Width 15.7 % (11.5-14.5) Platelet Count 306 x10^3/uL (140-400) Sodium Level 145 mmol/L (136-145) 143 mmol/L (136-145) Potassium Level 4.2 mmol/L (3.5-5.1) 3.8 mmol/L (3.5-5.1) Chloride Level 108 mmol/L (98-107) 108 mmol/L (98-107) Carbon Dioxide Level 26 mmol/L (21-32) 26 mmol/L (21-32) Anion Gap 11 (6-14) 9 (6-14) Blood Urea Nitrogen 13 mg/dL (7-20) 5 mg/dL (7-20) Creatinine 0.9 mg/dL (0.6-1.0) 0.8 mg/dL (0.6-1.0) Estimated GFR (Cockcroft-Gault) 59.7 68.3 Glucose Level 113 mg/dL (70-99) 110 mg/dL (70-99) Calcium Level 8.7 mg/dL (8.5-10.1) 8.7 mg/dL (8.5-10.1) Medications Current Medications Sodium Chloride 1,000 ml @ 100 mls/hr Q10H IV Last administered on 03/10/18at 13:51; Start 03/10/18 at 13:51; Stop 03/10/18 at 23:50; Status DC Iohexol (Omnipaque 300 Mg/ml) 75 ml 1X ONCE IV Last administered on 03/10/18at 14:00; Start 03/10/18 at 14:00; Stop 03/10/18 at 14:01; Status DC Info (CONTRAST GIVEN -- Rx MONITORING) 1 each PRN DAILY PRN MC SEE COMMENTS; Start 03/10/18 at 14:15; Stop 03/12/18 at 14:14 Potassium Chloride (Klor-Con) 40 meq 1X ONCE PO ; Start 03/10/18 at 15:00; Stop 03/10/18 at 15:35; Status DC Potassium Chloride/Water 50 ml @ 50 mls/hr Q1H IV ; Start 03/10/18 at 15:00; Stop 03/10/18 at 16:59; Status UNV Sodium Chloride 500 ml @ 125 mls/hr ONCE ONCE IV ; Start 03/10/18 at 15:30; Stop 03/10/18 at 15:30; Status DC Potassium Chloride 40 meq/ Sodium Chloride 520 ml @ 130 mls/hr ONCE ONCE IV ; Start 03/10/18 at 15:30; Stop 03/10/18 at 15:35; Status DC Ringer's Solution 1,000 ml @ 125 mls/hr 1X ONCE IV ; Start 03/10/18 at 15:45; Stop 03/10/18 at 23:44; Status DC Fentanyl Citrate (Fentanyl 2ml Vial) 25 mcg PRN Q2HR PRN IV SEVERE PAIN Last administered on 03/10/18at 21:00; Start 03/10/18 at 21:00; Stop 03/11/18 at 07:57 ; Status DC Ondansetron HCl (Zofran) 4 mg PRN Q6HRS PRN IV NAUSEA/VOMITING 1ST CHOICE Last administered on 03/11/18at 18:08; Start 03/10/18 at 21:00 Pharmacy Consult (C.diff Med Screen By Rx) 1 each 1X ONCE MC ; Start 03/10/18 at 21:30; Stop 03/10/18 at 21:31; Status Cancel Potassium Chloride/Dextrose/ Sod Cl 1,000 ml @ 100 mls/hr Q10H IV Last administered on 03/12/18at 05:49; Start 03/11/18 at 07:45 Levothyroxine Sodium (Synthroid) 75 mcg DAILY06 PO Last administered on at 05:38; Start 03/11/18 at 09:00 Paroxetine HCl (Paxil) 60 mg DAILY PO Last administered on 03/12/18at 08:14; Start 03/11/18 at 09:00 Acetaminophen (Tylenol) 1,000 mg PRN Q6HRS PRN PO pain Last administered on 03/11/18at 18:09; Start 03/11/18 at 08:00 Active Scripts Active Reported Culturelle (Lactobacillus Rhamnosus Gg) 1 Each Capsule 1-2 Each PO PRN DAILY PRN Calcium (Calcium Carbonate) 600 Mg Tablet 600 Mg PO BID Women's Daily Formula (Multivit With Calcium,Iron,Min) 1 Each Tablet 1 Each PO DAILY Miralax (Polyethylene Glycol 3350) 17 Gm Powd.pack 1 Packet PO PRN DAILY PRN Levothyroxine Sodium 75 Mcg Tablet 1 Tab PO DAILY Aspir-Low (Aspirin) 81 Mg Tablet. 1 Tab PO DAILY Paroxetine Hcl 40 Mg Tablet 60 Mg PO DAILY Loratadine 10 Mg Tablet 10 Mg PO DAILY Vitals/I & O Vital Sign - Last 24 Hours 03/11/18 03/11/18 03/11/18 03/11/18 11:00 15:00 19:30 19:59 Temp 98.1 97.7 98.9 98.1 97.7 98.9 Pulse 80 79 79 Resp 16 16 18 B/P (MAP) 137/70 (92) 140/77 (98) 149/79 (102) Pulse Ox 97 97 96 O2 Delivery Room Air Room Air Room Air Room Air 03/11/18 03/12/18 03/12/18 23:50 03:59 07:00 Temp 98.2 98.9 98.4 98.2 98.9 98.4 Pulse 80 73 76 Resp 19 18 19 B/P (MAP) 152/84 (106) 130/76 (94) 153/84 (107) Pulse Ox 94 97 96 O2 Delivery Room Air Room Air Room Air Intake and Output 03/11/18 03/11/18 03/12/18 15:00 23:00 07:00 Intake Total 1000 ml 0 ml Output Total 550 ml 700 ml Balance -550 ml 1000 ml -700 ml NADIA ACKERMAN MD Mar 12, 2018 08:52
--- NOTE | 2018-03-12 09:50 | RAD ---
Three-view acute abdominal series. HISTORY: Small bowel obstruction 3 views were taken for an acute abdominal series. Lungs are clear without infiltrates. There is arthritis in both shoulders. There is a hiatus hernia behind the heart. There is no free air on the upright view the abdomen or abnormal air-fluid levels. There is a nonspecific bowel gas pattern with mild small bowel distention but without an obstructive pattern. Patient's had a cholecystectomy. There is mild scoliosis and degenerative change in the lumbar spine. IMPRESSION: 1. Nonspecific bowel pattern without definite obstruction. 2. No acute infiltrates. 3. Hiatus hernia. Electronically signed by: Shane Guerrero MD (03/12/2018 9:46 AM) [facility]
[2018-03-12] MEDS: ACETAMINOPHEN 500 MG TABLET PO PRN ×2 (09:55→18:07)
[2018-03-12] MEDS: ONDANSETRON PF 4 MG/2 ML VIAL. IV PRN (09:55)
--- NOTE | 2018-03-12 10:36 | PDOC ---
PROGRESS NOTES Subjective Subjective Patient reports some nausea earlier this AM, better with Zofran. Denies abdominal pain. Some liquid stools yesterday. Objective Objective Vital Signs Date Time Temp Pulse Resp B/P (MAP) Pulse Ox O2 Delivery O2 Flow Rate FiO2 03/12/18 07:00 98.4 76 19 153/84 (107) 96 Room Air 98.4 Intake and Output 03/12/18 07:00 Intake Total 1000 ml Output Total 1250 ml Balance -250 ml Intake Oral 0 ml IV Total 1000 ml Output Urine Total 1250 ml # Voids 2 # Bowel Movements 2 Physical Exam Abdomen: Soft, No tenderness, Other (positive bowel sounds but not at normal level) Heart: Regular rate Extremities: No edema General: Alert, Oriented X3, No acute distress Lungs: Clear to auscultation Assessment Assessment Problems Medical Problems: (1) Abdominal hernia Status: Acute (2) Small bowel obstruction Status: Acute Plan Plan of Care 1. Partial SBO - stable. KUB this AM without much change. Continue NPO with IVF , patient comfortable with ice chips. Stool studies negative. 2. hypokalemia - resolved, electrolytes good with present IVF. 3. chronic anxiety - stable, continue Paxil. 4. mild memory loss - at baseline, continue supportive care. Comment Review of Relevant I have reviewed the following items sima (where applicable) has been applied. Labs Laboratory Tests Test 03/10/18 13:51 03/10/18 14:15 03/10/18 14:39 03/11/18 08:50 Clostridium difficile Toxin B Gene Negative (Negative) Ova and Parasites (LAB) Final report (.) Ova & Parasite Result 1 Comment (.) White Blood Count 25.9 x10^3/uL (4.0-11.0) Red Blood Count 5.29 x10^6/uL (3.50-5.40) Hemoglobin 14.7 g/dL (12.0-15.5) Hematocrit 44.7 % (36.0-47.0) Mean Corpuscular Volume 84 fL (79-100) Mean Corpuscular Hemoglobin 28 pg (25-35) Mean Corpuscular Hemoglobin Concent 33 g/dL (31-37) Red Cell Distribution Width 15.5 % (11.5-14.5) Platelet Count 416 x10^3/uL (140-400) Neutrophils (%) (Auto) 86 % (31-73) Lymphocytes (%) (Auto) 8 % (24-48) Monocytes (%) (Auto) 5 % (0-9) Eosinophils (%) (Auto) 0 % (0-3) Basophils (%) (Auto) 0 % (0-3) Neutrophils # (Auto) 22.3 x10^3uL (1.8-7.7) Lymphocytes # (Auto) 2.2 x10^3/uL (1.0-4.8) Monocytes # (Auto) 1.2 x10^3/uL (0.0-1.1) Eosinophils # (Auto) 0.1 x10^3/uL (0.0-0.7) Basophils # (Auto) 0.1 x10^3/uL (0.0-0.2) Segmented Neutrophils % 87 % (35-66) Band Neutrophils % 1 % (0-9) Lymphocytes % 7 % (24-48) Monocytes % 5 % (0-10) Platelet Estimate Adequate (ADEQUATE) Sodium Level 141 mmol/L (136-145) Potassium Level 3.8 mmol/L (3.5-5.1) Chloride Level 99 mmol/L (98-107) Carbon Dioxide Level 25 mmol/L (21-32) Anion Gap 17 (6-14) 16 mmol/L (6-14) Blood Urea Nitrogen 18 mg/dL (7-20) Creatinine 1.5 mg/dL (0.6-1.0) Estimated GFR (Cockcroft-Gault) 33.1 Glucose Level 119 mg/dL (70-99) 85 mg/dL (70-99) Lactic Acid Level 2.1 mmol/L (0.4-2.0) Calcium Level 10.2 mg/dL (8.5-10.1) Magnesium Level 2.4 mg/dL (1.8-2.4) Total Bilirubin 0.4 mg/dL (0.2-1.0) Direct Bilirubin 0.1 mg/dL (0.0-0.2) Aspartate Amino Transf (AST/SGOT) 34 U/L (15-37) Alanine Aminotransferase (ALT/SGPT) 32 U/L (14-59) Alkaline Phosphatase 116 U/L (46-116) Total Protein 8.8 g/dL (6.4-8.2) Albumin 4.5 g/dL (3.4-5.0) Lipase 290 U/L (73-393) Bedside Hemoglobin 9.2 g/dL (12-15) Bedside Hematocrit 27 % (36-40) Bedside Sodium 147 mmol/L (135-145) Bedside Potassium 2.9 mmol/L (3.5-5.0) Bedside Chloride 115 mmol/L (98-110) Bedside Total CO2 20 mmol/L (23-32) Bedside Blood Urea Nitrogen 14 mg/dL (8-26) Bedside Creatinine 0.8 mg/dL (0.5-1.4) Bedside Ionized Calcium (Margot) 0.80 mmol/L (1.13-1.32) Urine Collection Type Unknown Urine Color Yellow Urine Clarity Clear Urine pH 6.5 Urine Specific [place] 1.025 Urine Protein Negative mg/dL (NEG-TRACE) Urine Glucose (UA) Negative mg/dL (NEG) Urine Ketones (Stick) Negative mg/dL (NEG) Urine Blood Negative (NEG) Urine Nitrite Negative (NEG) Urine Bilirubin Negative (NEG) Urine Urobilinogen Dipstick 0.2 mg/dL (0.2 mg/dL) Urine Leukocyte Esterase Negative (NEG) Urine RBC 0 /HPF (0-2) Urine WBC 1-4 /HPF (0-4) Urine Squamous Epithelial Cells Occ /LPF Urine Bacteria 0 /HPF (0-FEW) Test 03/11/18 09:10 03/12/18 05:35 White Blood Count 9.2 x10^3/uL (4.0-11.0) Red Blood Count 4.42 x10^6/uL (3.50-5.40) Hemoglobin 12.2 g/dL (12.0-15.5) Hematocrit 37.5 % (36.0-47.0) Mean Corpuscular Volume 85 fL (79-100) Mean Corpuscular Hemoglobin 28 pg (25-35) Mean Corpuscular Hemoglobin Concent 33 g/dL (31-37) Red Cell Distribution Width 15.7 % (11.5-14.5) Platelet Count 306 x10^3/uL (140-400) Sodium Level 145 mmol/L (136-145) 143 mmol/L (136-145) Potassium Level 4.2 mmol/L (3.5-5.1) 3.8 mmol/L (3.5-5.1) Chloride Level 108 mmol/L (98-107) 108 mmol/L (98-107) Carbon Dioxide Level 26 mmol/L (21-32) 26 mmol/L (21-32) Anion Gap 11 (6-14) 9 (6-14) Blood Urea Nitrogen 13 mg/dL (7-20) 5 mg/dL (7-20) Creatinine 0.9 mg/dL (0.6-1.0) 0.8 mg/dL (0.6-1.0) Estimated GFR (Cockcroft-Gault) 59.7 68.3 Glucose Level 113 mg/dL (70-99) 110 mg/dL (70-99) Calcium Level 8.7 mg/dL (8.5-10.1) 8.7 mg/dL (8.5-10.1) Laboratory Tests Test 03/12/18 05:35 Sodium Level 143 mmol/L (136-145) Potassium Level 3.8 mmol/L (3.5-5.1) Chloride Level 108 mmol/L (98-107) Carbon Dioxide Level 26 mmol/L (21-32) Anion Gap 9 (6-14) Blood Urea Nitrogen 5 mg/dL (7-20) Creatinine 0.8 mg/dL (0.6-1.0) Estimated GFR (Cockcroft-Gault) 68.3 Glucose Level 110 mg/dL (70-99) Calcium Level 8.7 mg/dL (8.5-10.1) Microbiology 03/10/18 Stool Culture - Final, Resulted 03/10/18 Stool Culture Result 1 (HAROLDO) - Final, Resulted 03/10/18 Campylobacter Antigen Assay - Preliminary, Resulted 03/10/18 Campylobactor Result 1 - Preliminary, Resulted 03/10/18 Shiga Toxin Test, Resulted Pending Medications Current Medications Sodium Chloride 1,000 ml @ 100 mls/hr Q10H IV Last administered on 03/10/18at 13:51; Start 03/10/18 at 13:51; Stop 03/10/18 at 23:50; Status DC Iohexol (Omnipaque 300 Mg/ml) 75 ml 1X ONCE IV Last administered on 03/10/18at 14:00; Start 03/10/18 at 14:00; Stop 03/10/18 at 14:01; Status DC Info (CONTRAST GIVEN -- Rx MONITORING) 1 each PRN DAILY PRN MC SEE COMMENTS; Start 03/10/18 at 14:15; Stop 03/12/18 at 14:14 Potassium Chloride (Klor-Con) 40 meq 1X ONCE PO ; Start 03/10/18 at 15:00; Stop 03/10/18 at 15:35; Status DC Potassium Chloride/Water 50 ml @ 50 mls/hr Q1H IV ; Start 03/10/18 at 15:00; Stop 03/10/18 at 16:59; Status UNV Sodium Chloride 500 ml @ 125 mls/hr ONCE ONCE IV ; Start 03/10/18 at 15:30; Stop 03/10/18 at 15:30; Status DC Potassium Chloride 40 meq/ Sodium Chloride 520 ml @ 130 mls/hr ONCE ONCE IV ; Start 03/10/18 at 15:30; Stop 03/10/18 at 15:35; Status DC Ringer's Solution 1,000 ml @ 125 mls/hr 1X ONCE IV ; Start 03/10/18 at 15:45; Stop 03/10/18 at 23:44; Status DC Fentanyl Citrate (Fentanyl 2ml Vial) 25 mcg PRN Q2HR PRN IV SEVERE PAIN Last administered on 03/10/18at 21:00; Start 03/10/18 at 21:00; Stop 03/11/18 at 07:57 ; Status DC Ondansetron HCl (Zofran) 4 mg PRN Q6HRS PRN IV NAUSEA/VOMITING 1ST CHOICE Last administered on 03/12/18at 09:55; Start 03/10/18 at 21:00 Pharmacy Consult (C.diff Med Screen By Rx) 1 each 1X ONCE MC ; Start 03/10/18 at 21:30; Stop 03/10/18 at 21:31; Status Cancel Potassium Chloride/Dextrose/ Sod Cl 1,000 ml @ 100 mls/hr Q10H IV Last administered on 03/12/18at 05:49; Start 03/11/18 at 07:45 Levothyroxine Sodium (Synthroid) 75 mcg DAILY06 PO Last administered on at 05:38; Start 03/11/18 at 09:00 Paroxetine HCl (Paxil) 60 mg DAILY PO Last administered on 03/12/18at 08:14; Start 03/11/18 at 09:00 Acetaminophen (Tylenol) 1,000 mg PRN Q6HRS PRN PO pain Last administered on 02/17at 09:55; Start 03/11/18 at 08:00 Active Scripts Active Reported Culturelle (Lactobacillus Rhamnosus Gg) 1 Each Capsule 1-2 Each PO PRN DAILY PRN Calcium (Calcium Carbonate) 600 Mg Tablet 600 Mg PO BID Women's Daily Formula (Multivit With Calcium,Iron,Min) 1 Each Tablet 1 Each PO DAILY Miralax (Polyethylene Glycol 3350) 17 Gm Powd.pack 1 Packet PO PRN DAILY PRN Levothyroxine Sodium 75 Mcg Tablet 1 Tab PO DAILY Aspir-Low (Aspirin) 81 Mg Tablet. 1 Tab PO DAILY Paroxetine Hcl 40 Mg Tablet 60 Mg PO DAILY Loratadine 10 Mg Tablet 10 Mg PO DAILY Vitals/I & O Vital Sign - Last 24 Hours 03/11/18 03/11/18 03/11/18 03/11/18 11:00 15:00 19:30 19:59 Temp 98.1 97.7 98.9 98.1 97.7 98.9 Pulse 80 79 79 Resp 16 16 18 B/P (MAP) 137/70 (92) 140/77 (98) 149/79 (102) Pulse Ox 97 97 96 O2 Delivery Room Air Room Air Room Air Room Air 03/11/18 03/12/18 03/12/18 23:50 03:59 07:00 Temp 98.2 98.9 98.4 98.2 98.9 98.4 Pulse 80 73 76 Resp 19 18 19 B/P (MAP) 152/84 (106) 130/76 (94) 153/84 (107) Pulse Ox 94 97 96 O2 Delivery Room Air Room Air Room Air Intake and Output 03/11/18 03/11/18 03/12/18 15:00 23:00 07:00 Intake Total 1000 ml 0 ml Output Total 550 ml 700 ml Balance -550 ml 1000 ml -700 ml ERIKA WALSH MD Mar 12, 2018 10:36
[2018-03-12 11:00] VITALS: BP 157/80
[2018-03-12 15:00] VITALS: BP 156/79
[2018-03-12 19:00] VITALS: BP 155/79
[2018-03-12 22:55] VITALS: BP 139/77
[2018-03-13 02:46] VITALS: BP 160/82
[2018-03-13] MEDS: POTASSIUM CL 20MEQ D5-0.45NACL 1,000 ML IV SCH (06:02)
[2018-03-13] MEDS: LEVOTHYROXINE 75 MCG TABLET PO SCH (06:07)
[2018-03-13 07:00] VITALS: BP 151/84
[2018-03-13] MEDS: PARoxetine 20 MG TABLET PO SCH (08:12)
--- NOTE | 2018-03-13 10:11 | PDOC ---
PROGRESS NOTES Subjective Subjective Patient denies nausea or abdominal pain at this time. Objective Objective Vital Signs Date Time Temp Pulse Resp B/P (MAP) Pulse Ox O2 Delivery O2 Flow Rate FiO2 03/13/18 08:00 Room Air 03/13/18 07:00 98.6 72 18 151/84 (106) 93 98.6 Intake and Output 03/13/18 07:00 Output Total 550 ml Balance -550 ml Output Urine Total 550 ml # Voids 4 Physical Exam Abdomen: Normal bowel sounds, Soft, No tenderness Heart: Regular rate Extremities: No edema General: Alert, No acute distress Lungs: Clear to auscultation Assessment Assessment Problems Medical Problems: (1) Abdominal hernia Status: Acute (2) Small bowel obstruction Status: Acute Plan Plan of Care 1. Partial SBO - exam much improved. Will d/c IVF and try clears today, discussed with Dr Littlejohn. 2. chronic anxiety - stable, continue home medication. 3. mild memory loss - stable, continue supportive care. Comment Review of Relevant I have reviewed the following items sima (where applicable) has been applied. Labs Laboratory Tests Test 03/12/18 05:35 Sodium Level 143 mmol/L (136-145) Potassium Level 3.8 mmol/L (3.5-5.1) Chloride Level 108 mmol/L (98-107) Carbon Dioxide Level 26 mmol/L (21-32) Anion Gap 9 (6-14) Blood Urea Nitrogen 5 mg/dL (7-20) Creatinine 0.8 mg/dL (0.6-1.0) Estimated GFR (Cockcroft-Gault) 68.3 Glucose Level 110 mg/dL (70-99) Calcium Level 8.7 mg/dL (8.5-10.1) Microbiology 03/10/18 Stool Culture - Final, Resulted 03/10/18 Stool Culture Result 1 (HAROLDO) - Final, Resulted 03/10/18 Campylobacter Antigen Assay - Preliminary, Resulted 03/10/18 Campylobactor Result 1 - Preliminary, Resulted 03/10/18 Shiga Toxin Test - Final, Resulted Medications Current Medications Sodium Chloride 1,000 ml @ 100 mls/hr Q10H IV Last administered on 03/10/18at 13:51; Start 03/10/18 at 13:51; Stop 03/10/18 at 23:50; Status DC Iohexol (Omnipaque 300 Mg/ml) 75 ml 1X ONCE IV Last administered on 03/10/18at 14:00; Start 03/10/18 at 14:00; Stop 03/10/18 at 14:01; Status DC Info (CONTRAST GIVEN -- Rx MONITORING) 1 each PRN DAILY PRN MC SEE COMMENTS; Start 03/10/18 at 14:15; Stop 03/12/18 at 14:15; Status DC Potassium Chloride (Klor-Con) 40 meq 1X ONCE PO ; Start 03/10/18 at 15:00; Stop 03/10/18 at 15:35; Status DC Potassium Chloride/Water 50 ml @ 50 mls/hr Q1H IV ; Start 03/10/18 at 15:00; Stop 03/10/18 at 16:59; Status UNV Sodium Chloride 500 ml @ 125 mls/hr ONCE ONCE IV ; Start 03/10/18 at 15:30; Stop 03/10/18 at 15:30; Status DC Potassium Chloride 40 meq/ Sodium Chloride 520 ml @ 130 mls/hr ONCE ONCE IV ; Start 03/10/18 at 15:30; Stop 03/10/18 at 15:35; Status DC Ringer's Solution 1,000 ml @ 125 mls/hr 1X ONCE IV ; Start 03/10/18 at 15:45; Stop 03/10/18 at 23:44; Status DC Fentanyl Citrate (Fentanyl 2ml Vial) 25 mcg PRN Q2HR PRN IV SEVERE PAIN Last administered on 03/10/18at 21:00; Start 03/10/18 at 21:00; Stop 03/11/18 at 07:57 ; Status DC Ondansetron HCl (Zofran) 4 mg PRN Q6HRS PRN IV NAUSEA/VOMITING 1ST CHOICE Last administered on 03/12/18at 09:55; Start 03/10/18 at 21:00 Pharmacy Consult (C.diff Med Screen By Rx) 1 each 1X ONCE MC ; Start 03/10/18 at 21:30; Stop 03/10/18 at 21:31; Status Cancel Potassium Chloride/Dextrose/ Sod Cl 1,000 ml @ 75 mls/hr [id number] IV Last administered on 03/13/18at 06:02; Start 03/11/18 at 07:45 Levothyroxine Sodium (Synthroid) 75 mcg DAILY06 PO Last administered on at 06:07; Start 03/11/18 at 09:00 Paroxetine HCl (Paxil) 60 mg DAILY PO Last administered on 03/13/18at 08:12; Start 03/11/18 at 09:00 Acetaminophen (Tylenol) 1,000 mg PRN Q6HRS PRN PO pain Last administered on 02/17at 18:07; Start 03/11/18 at 08:00 Active Scripts Active Reported Culturelle (Lactobacillus Rhamnosus Gg) 1 Each Capsule 1-2 Each PO PRN DAILY PRN Calcium (Calcium Carbonate) 600 Mg Tablet 600 Mg PO BID Women's Daily Formula (Multivit With Calcium,Iron,Min) 1 Each Tablet 1 Each PO DAILY Miralax (Polyethylene Glycol 3350) 17 Gm Powd.pack 1 Packet PO PRN DAILY PRN Levothyroxine Sodium 75 Mcg Tablet 1 Tab PO DAILY Aspir-Low (Aspirin) 81 Mg Tablet.dr 1 Tab PO DAILY Paroxetine Hcl 40 Mg Tablet 60 Mg PO DAILY Loratadine 10 Mg Tablet 10 Mg PO DAILY Vitals/I & O Vital Sign - Last 24 Hours 03/12/18 03/12/18 03/12/18 03/12/18 11:00 15:00 19:00 19:53 Temp 98.4 97.9 99.3 98.4 97.9 99.3 Pulse 71 69 71 Resp B/P (MAP) 157/80 (105) 156/79 (104) 155/79 (104) Pulse Ox 95 94 95 O2 Delivery Room Air Room Air Room Air Room Air 03/12/18 03/13/18 03/13/18 03/13/18 22:55 02:46 07:00 08:00 Temp 98.2 97.9 98.6 98.2 97.9 98.6 Pulse 77 81 72 Resp B/P (MAP) 139/77 (97) 160/82 (108) 151/84 (106) Pulse Ox 96 95 93 O2 Delivery Room Air Room Air Room Air Room Air Intake and Output 03/12/18 03/12/18 03/13/18 15:00 23:00 07:00 Output Total 200 ml 350 ml Balance -200 ml -350 ml ERIKA WLASH MD Mar 13, 2018 10:11
[2018-03-13 11:00] VITALS: BP 141/83
--- NOTE | 2018-03-13 11:11 | PDOC ---
PROGRESS NOTES Subjective Subjective doing well, 2 stools recorded, denies abdominal pain Objective Objective Vital Signs Date Time Temp Pulse Resp B/P (MAP) Pulse Ox O2 Delivery O2 Flow Rate FiO2 03/13/18 11:00 98.5 82 18 141/83 (102) 94 Room Air 98.5 Intake and Output 03/13/18 07:00 Output Total 550 ml Balance -550 ml Output Urine Total 550 ml # Voids 4 Physical Exam Abdomen: Soft, No tenderness Heart: Regular rate General: Alert, Oriented X3 MUSCULOSKELETAL: No joint tenderness, No deformity Neuro: Normal speech Psych/Mental Status: Mental status NL Assessment Assessment Problems Medical Problems: (1) Abdominal hernia Status: Acute (2) Small bowel obstruction Status: Acute Plan Plan of Care Clinically improved, KUB looked good; rec starting clears, discussed with Dr Valencia Comment Review of Relevant I have reviewed the following items sima (where applicable) has been applied. Labs Laboratory Tests Test 03/12/18 05:35 Sodium Level 143 mmol/L (136-145) Potassium Level 3.8 mmol/L (3.5-5.1) Chloride Level 108 mmol/L (98-107) Carbon Dioxide Level 26 mmol/L (21-32) Anion Gap 9 (6-14) Blood Urea Nitrogen 5 mg/dL (7-20) Creatinine 0.8 mg/dL (0.6-1.0) Estimated GFR (Cockcroft-Gault) 68.3 Glucose Level 110 mg/dL (70-99) Calcium Level 8.7 mg/dL (8.5-10.1) Microbiology 03/10/18 Stool Culture - Final, Resulted 03/10/18 Stool Culture Result 1 (HAROLDO) - Final, Resulted 03/10/18 Campylobacter Antigen Assay - Preliminary, Resulted 03/10/18 Campylobactor Result 1 - Preliminary, Resulted 03/10/18 Shiga Toxin Test - Final, Resulted Medications Current Medications Sodium Chloride 1,000 ml @ 100 mls/hr Q10H IV Last administered on 03/10/18at 13:51; Start 03/10/18 at 13:51; Stop 03/10/18 at 23:50; Status DC Iohexol (Omnipaque 300 Mg/ml) 75 ml 1X ONCE IV Last administered on 03/10/18at 14:00; Start 03/10/18 at 14:00; Stop 03/10/18 at 14:01; Status DC Info (CONTRAST GIVEN -- Rx MONITORING) 1 each PRN DAILY PRN MC SEE COMMENTS; Start 03/10/18 at 14:15; Stop 03/12/18 at 14:15; Status DC Potassium Chloride (Klor-Con) 40 meq 1X ONCE PO ; Start 03/10/18 at 15:00; Stop 03/10/18 at 15:35; Status DC Potassium Chloride/Water 50 ml @ 50 mls/hr Q1H IV ; Start 03/10/18 at 15:00; Stop 03/10/18 at 16:59; Status UNV Sodium Chloride 500 ml @ 125 mls/hr ONCE ONCE IV ; Start 03/10/18 at 15:30; Stop 03/10/18 at 15:30; Status DC Potassium Chloride 40 meq/ Sodium Chloride 520 ml @ 130 mls/hr ONCE ONCE IV ; Start 03/10/18 at 15:30; Stop 03/10/18 at 15:35; Status DC Ringer's Solution 1,000 ml @ 125 mls/hr 1X ONCE IV ; Start 03/10/18 at 15:45; Stop 03/10/18 at 23:44; Status DC Fentanyl Citrate (Fentanyl 2ml Vial) 25 mcg PRN Q2HR PRN IV SEVERE PAIN Last administered on 03/10/18at 21:00; Start 03/10/18 at 21:00; Stop 03/11/18 at 07:57 ; Status DC Ondansetron HCl (Zofran) 4 mg PRN Q6HRS PRN IV NAUSEA/VOMITING 1ST CHOICE Last administered on 03/12/18at 09:55; Start 03/10/18 at 21:00 Pharmacy Consult (C.diff Med Screen By Rx) 1 each 1X ONCE MC ; Start 03/10/18 at 21:30; Stop 03/10/18 at 21:31; Status Cancel Potassium Chloride/Dextrose/ Sod Cl 1,000 ml @ 75 mls/hr [id number] IV Last administered on 03/13/18at 06:02; Start 03/11/18 at 07:45; Stop 03/13/18 at 10: 09; Status DC Levothyroxine Sodium (Synthroid) 75 mcg DAILY06 PO Last administered on at 06:07; Start 03/11/18 at 09:00 Paroxetine HCl (Paxil) 60 mg DAILY PO Last administered on 03/13/18at 08:12; Start 03/11/18 at 09:00 Acetaminophen (Tylenol) 1,000 mg PRN Q6HRS PRN PO pain Last administered on 02/17at 18:07; Start 03/11/18 at 08:00 Active Scripts Active Reported Culturelle (Lactobacillus Rhamnosus Gg) 1 Each Capsule 1-2 Each PO PRN DAILY PRN Calcium (Calcium Carbonate) 600 Mg Tablet 600 Mg PO BID Women's Daily Formula (Multivit With Calcium,Iron,Min) 1 Each Tablet 1 Each PO DAILY Miralax (Polyethylene Glycol 3350) 17 Gm Powd.pack 1 Packet PO PRN DAILY PRN Levothyroxine Sodium 75 Mcg Tablet 1 Tab PO DAILY Aspir-Low (Aspirin) 81 Mg Tablet. 1 Tab PO DAILY Paroxetine Hcl 40 Mg Tablet 60 Mg PO DAILY Loratadine 10 Mg Tablet 10 Mg PO DAILY Vitals/I & O Vital Sign - Last 24 Hours 03/12/18 03/12/18 03/12/18 03/12/18 15:00 19:00 19:53 22:55 Temp 97.9 99.3 98.2 97.9 99.3 98.2 Pulse 69 71 77 Resp B/P (MAP) 156/79 (104) 155/79 (104) 139/77 (97) Pulse Ox 94 95 96 O2 Delivery Room Air Room Air Room Air Room Air 03/13/18 03/13/18 03/13/18 03/13/18 02:46 07:00 08:00 11:00 Temp 97.9 98.6 98.5 97.9 98.6 98.5 Pulse 81 72 82 Resp 18 B/P (MAP) 160/82 (108) 151/84 (106) 141/83 (102) Pulse Ox 95 93 94 O2 Delivery Room Air Room Air Room Air Room Air Intake and Output 03/12/18 03/12/18 03/13/18 15:00 23:00 07:00 Output Total 200 ml 350 ml Balance -200 ml -350 ml NADIA ACKERMAN MD Mar 13, 2018 11:11
[2018-03-13] MEDS: ACETAMINOPHEN 500 MG TABLET PO PRN (13:08)
[2018-03-13 14:41] VITALS: BP 141/70
[2018-03-13 19:00] VITALS: BP 143/85
[2018-03-13 22:43] VITALS: BP 123/72
[2018-03-14 03:00] VITALS: BP 137/80
[2018-03-14] MEDS: LEVOTHYROXINE 75 MCG TABLET PO SCH (05:19)
[2018-03-14 07:00] VITALS: BP 123/73
--- NOTE | 2018-03-14 08:32 | PDOC ---
PROGRESS NOTES Subjective Subjective Patient denies abdominal pain or nausea. Taking clears without problems. No BM yesterday. Objective Objective Vital Signs Date Time Temp Pulse Resp B/P (MAP) Pulse Ox O2 Delivery O2 Flow Rate FiO2 03/14/18 07:00 97.7 83 16 123/73 (90) 94 Room Air 97.7 Intake and Output 03/14/18 07:00 Intake Total 960 ml Balance 960 ml Intake Oral 960 ml # Voids 2 Physical Exam Abdomen: Normal bowel sounds, Soft, No tenderness Heart: Regular rate Extremities: No edema General: Alert, Oriented X3, No acute distress Lungs: Clear to auscultation Assessment Assessment Problems Medical Problems: (1) Abdominal hernia Status: Acute (2) Small bowel obstruction Status: Acute Plan Plan of Care 1. Partial SBO - appears resolved. Will advance to full liquids today. 2. chronic constipation - resume her usual Miralax today. 3. chronic anxiety - stable, continue Paxil. 4. mild memory loss - at baseline, continue supportive care. Comment Review of Relevant I have reviewed the following items sima (where applicable) has been applied. Labs Microbiology 03/10/18 Stool Culture - Final, Resulted 03/10/18 Stool Culture Result 1 (HAROLDO) - Final, Resulted 03/10/18 Campylobacter Antigen Assay - Preliminary, Resulted 03/10/18 Campylobactor Result 1 - Preliminary, Resulted 03/10/18 Shiga Toxin Test - Final, Resulted Medications Current Medications Sodium Chloride 1,000 ml @ 100 mls/hr Q10H IV Last administered on 03/10/18at 13:51; Start 03/10/18 at 13:51; Stop 03/10/18 at 23:50; Status DC Iohexol (Omnipaque 300 Mg/ml) 75 ml 1X ONCE IV Last administered on 03/10/18at 14:00; Start 03/10/18 at 14:00; Stop 03/10/18 at 14:01; Status DC Info (CONTRAST GIVEN -- Rx MONITORING) 1 each PRN DAILY PRN MC SEE COMMENTS; Start 03/10/18 at 14:15; Stop 03/12/18 at 14:15; Status DC Potassium Chloride (Klor-Con) 40 meq 1X ONCE PO ; Start 03/10/18 at 15:00; Stop 03/10/18 at 15:35; Status DC Potassium Chloride/Water 50 ml @ 50 mls/hr Q1H IV ; Start 03/10/18 at 15:00; Stop 03/10/18 at 16:59; Status UNV Sodium Chloride 500 ml @ 125 mls/hr ONCE ONCE IV ; Start 03/10/18 at 15:30; Stop 03/10/18 at 15:30; Status DC Potassium Chloride 40 meq/ Sodium Chloride 520 ml @ 130 mls/hr ONCE ONCE IV ; Start 03/10/18 at 15:30; Stop 03/10/18 at 15:35; Status DC Ringer's Solution 1,000 ml @ 125 mls/hr 1X ONCE IV ; Start 03/10/18 at 15:45; Stop 03/10/18 at 23:44; Status DC Fentanyl Citrate (Fentanyl 2ml Vial) 25 mcg PRN Q2HR PRN IV SEVERE PAIN Last administered on 03/10/18at 21:00; Start 03/10/18 at 21:00; Stop 03/11/18 at 07:57 ; Status DC Ondansetron HCl (Zofran) 4 mg PRN Q6HRS PRN IV NAUSEA/VOMITING 1ST CHOICE Last administered on 03/12/18at 09:55; Start 03/10/18 at 21:00 Pharmacy Consult (C.diff Med Screen By Rx) 1 each 1X ONCE MC ; Start 03/10/18 at 21:30; Stop 03/10/18 at 21:31; Status Cancel Potassium Chloride/Dextrose/ Sod Cl 1,000 ml @ 75 mls/hr [id number] IV Last administered on 03/13/18at 06:02; Start 03/11/18 at 07:45; Stop 03/13/18 at 10: 09; Status DC Levothyroxine Sodium (Synthroid) 75 mcg DAILY06 PO Last administered on at 05:19; Start 03/11/18 at 09:00 Paroxetine HCl (Paxil) 60 mg DAILY PO Last administered on 03/13/18at 08:12; Start 03/11/18 at 09:00 Acetaminophen (Tylenol) 1,000 mg PRN Q6HRS PRN PO pain Last administered on 03/20at 13:08; Start 03/11/18 at 08:00 Active Scripts Active Reported Culturelle (Lactobacillus Rhamnosus Gg) 1 Each Capsule 1-2 Each PO PRN DAILY PRN Calcium (Calcium Carbonate) 600 Mg Tablet 600 Mg PO BID Women's Daily Formula (Multivit With Calcium,Iron,Min) 1 Each Tablet 1 Each PO DAILY Miralax (Polyethylene Glycol 3350) 17 Gm Powd.pack 1 Packet PO PRN DAILY PRN Levothyroxine Sodium 75 Mcg Tablet 1 Tab PO DAILY Aspir-Low (Aspirin) 81 Mg Tablet.dr 1 Tab PO DAILY Paroxetine Hcl 40 Mg Tablet 60 Mg PO DAILY Loratadine 10 Mg Tablet 10 Mg PO DAILY Vitals/I & O Vital Sign - Last 24 Hours 03/13/18 03/13/18 03/13/18 03/13/18 11:00 14:41 19:00 20:00 Temp 98.5 98.3 98.4 98.5 98.3 98.4 Pulse 82 90 73 Resp 18 18 18 B/P (MAP) 141/83 (102) 141/70 (93) 143/85 (104) Pulse Ox 94 94 95 O2 Delivery Room Air Room Air Room Air Room Air 03/13/18 03/14/18 03/14/18 22:43 03:00 07:00 Temp 98.4 98.0 97.7 98.4 98.0 97.7 Pulse 75 78 83 Resp 16 16 16 B/P (MAP) 123/72 (89) 137/80 (99) 123/73 (90) Pulse Ox 95 94 94 O2 Delivery Room Air Room Air Room Air Intake and Output 03/13/18 03/13/18 03/14/18 15:00 23:00 07:00 Intake Total 460 ml 300 ml 200 ml Balance 460 ml 300 ml 200 ml ERIKA WALSH MD Mar 14, 2018 08:32
[2018-03-14] MEDS: POLYETHYLENE GLYCOL 3350 17 GM PACKET. PO SCH (08:44)
[2018-03-14] MEDS: PARoxetine 20 MG TABLET PO SCH (08:46)
--- NOTE | 2018-03-14 09:19 | PDOC ---
SURGICAL PROGRESS NOTE Subjective no pain no nausea tolerating diet Vital Signs Vital Signs Date Time Temp Pulse Resp B/P (MAP) Pulse Ox O2 Delivery O2 Flow Rate FiO2 03/14/18 07:00 97.7 83 16 123/73 (90) 94 Room Air 97.7 I&O Intake and Output 03/14/18 07:00 Intake Total 960 ml Balance 960 ml Intake Oral 960 ml # Voids 2 General: Alert, Oriented X3, Cooperative, No acute distress Abdomen: Soft, No tenderness Problem List Problems Medical Problems: (1) Abdominal hernia Status: Acute (2) Small bowel obstruction Status: Acute Assessment/Plan improved advance diet as tolerated [employer] Mar 14, 2018 09:19
[2018-03-14 11:00] VITALS: BP 121/54
[2018-03-14 15:00] VITALS: BP 136/74
[2018-03-14 19:00] VITALS: BP 141/84
[2018-03-14 23:00] VITALS: BP 121/55
[2018-03-15 03:00] VITALS: BP 121/67
[2018-03-15] MEDS: LEVOTHYROXINE 75 MCG TABLET PO SCH (05:04)
[2018-03-15 07:00] VITALS: BP 127/79
--- NOTE | 2018-03-15 08:28 | PDOC ---
PROGRESS NOTES Subjective Subjective Patient without complaint. Ate regular breakfast this AM with good appetite. Denies abdominal pain or nausea. Objective Objective Vital Signs Date Time Temp Pulse Resp B/P (MAP) Pulse Ox O2 Delivery O2 Flow Rate FiO2 03/15/18 03:00 97.7 85 16 121/67 (85) 92 Room Air 97.7 Intake and Output 03/15/18 07:00 Intake Total 1020 ml Output Total 0 ml Balance 1020 ml Intake Oral 1020 ml Output Urine Total 0 ml # Voids 4 Physical Exam Abdomen: Normal bowel sounds, Soft, No tenderness Heart: Regular rate Extremities: No edema General: Alert, Oriented X3, No acute distress Lungs: Clear to auscultation Assessment Assessment Problems Medical Problems: (1) Abdominal hernia Status: Acute (2) Small bowel obstruction Status: Acute Plan Plan of Care 1. Partial SBO - resolved, home today. 2. chronic constipation - continue Miralax daily. Patient reports that she increases it to BID when needed, encouraged to continue this. 3. chronic anxiety - stable, continue home meds. 4. mild memory loss - at baseline, continue supportive care. Comment Review of Relevant I have reviewed the following items sima (where applicable) has been applied. Labs Microbiology 03/10/18 Stool Culture - Final, Complete 03/10/18 Stool Culture Result 1 (HAROLDO) - Final, Complete 03/10/18 Campylobacter Antigen Assay - Final, Complete 03/10/18 Campylobactor Result 1 - Final, Complete 03/10/18 Shiga Toxin Test - Final, Complete Medications Current Medications Sodium Chloride 1,000 ml @ 100 mls/hr Q10H IV Last administered on 03/10/18at 13:51; Start 03/10/18 at 13:51; Stop 03/10/18 at 23:50; Status DC Iohexol (Omnipaque 300 Mg/ml) 75 ml 1X ONCE IV Last administered on 03/10/18at 14:00; Start 03/10/18 at 14:00; Stop 03/10/18 at 14:01; Status DC Info (CONTRAST GIVEN -- Rx MONITORING) 1 each PRN DAILY PRN MC SEE COMMENTS; Start 03/10/18 at 14:15; Stop 03/12/18 at 14:15; Status DC Potassium Chloride (Klor-Con) 40 meq 1X ONCE PO ; Start 03/10/18 at 15:00; Stop 03/10/18 at 15:35; Status DC Potassium Chloride/Water 50 ml @ 50 mls/hr Q1H IV ; Start 03/10/18 at 15:00; Stop 03/10/18 at 16:59; Status UNV Sodium Chloride 500 ml @ 125 mls/hr ONCE ONCE IV ; Start 03/10/18 at 15:30; Stop 03/10/18 at 15:30; Status DC Potassium Chloride 40 meq/ Sodium Chloride 520 ml @ 130 mls/hr ONCE ONCE IV ; Start 03/10/18 at 15:30; Stop 03/10/18 at 15:35; Status DC Ringer's Solution 1,000 ml @ 125 mls/hr 1X ONCE IV ; Start 03/10/18 at 15:45; Stop 03/10/18 at 23:44; Status DC Fentanyl Citrate (Fentanyl 2ml Vial) 25 mcg PRN Q2HR PRN IV SEVERE PAIN Last administered on 03/10/18at 21:00; Start 03/10/18 at 21:00; Stop 03/11/18 at 07:57 ; Status DC Ondansetron HCl (Zofran) 4 mg PRN Q6HRS PRN IV NAUSEA/VOMITING 1ST CHOICE Last administered on 03/12/18at 09:55; Start 03/10/18 at 21:00 Pharmacy Consult (C.diff Med Screen By Rx) 1 each 1X ONCE MC ; Start 03/10/18 at 21:30; Stop 03/10/18 at 21:31; Status Cancel Potassium Chloride/Dextrose/ Sod Cl 1,000 ml @ 75 mls/hr [id number] IV Last administered on 03/13/18at 06:02; Start 03/11/18 at 07:45; Stop 03/13/18 at 10: 09; Status DC Levothyroxine Sodium (Synthroid) 75 mcg DAILY06 PO Last administered on at 05:04; Start 03/11/18 at 09:00 Paroxetine HCl (Paxil) 60 mg DAILY PO Last administered on 03/14/18at 08:46; Start 03/11/18 at 09:00 Acetaminophen (Tylenol) 1,000 mg PRN Q6HRS PRN PO pain Last administered on 03/20at 13:08; Start 03/11/18 at 08:00 Polyethylene Glycol (miraLAX PACKET) 17 gm DAILY PO Last administered on at 08:44; Start 03/14/18 at 09:00 Active Scripts Active Reported Culturelle (Lactobacillus Rhamnosus Gg) 1 Each Capsule 1-2 Each PO PRN DAILY PRN Calcium (Calcium Carbonate) 600 Mg Tablet 600 Mg PO BID Women's Daily Formula (Multivit With Calcium,Iron,Min) 1 Each Tablet 1 Each PO DAILY Miralax (Polyethylene Glycol 3350) 17 Gm Powd.pack 1 Packet PO PRN DAILY PRN Levothyroxine Sodium 75 Mcg Tablet 1 Tab PO DAILY Aspir-Low (Aspirin) 81 Mg Tablet.dr 1 Tab PO DAILY Paroxetine Hcl 40 Mg Tablet 60 Mg PO DAILY Loratadine 10 Mg Tablet 10 Mg PO DAILY Vitals/I & O Vital Sign - Last 24 Hours 03/14/18 03/14/18 03/14/18 03/14/18 11:00 15:00 19:00 20:00 Temp 99.1 97.8 97.6 99.1 97.8 97.6 Pulse 73 78 70 Resp 16 18 17 B/P (MAP) 121/54 (76) 136/74 (94) 141/84 (103) Pulse Ox 92 91 96 O2 Delivery Room Air Room Air Room Air Room Air 03/14/18 03/15/18 23:00 03:00 Temp 97.7 97.7 97.7 97.7 Pulse 72 85 Resp 16 16 B/P (MAP) 121/55 (77) 121/67 (85) Pulse Ox 97 92 O2 Delivery Room Air Room Air Intake and Output 03/14/18 03/14/18 03/15/18 15:00 23:00 07:00 Intake Total 420 ml 600 ml Output Total 0 ml Balance 420 ml 600 ml 0 ml ERIKA WALSH MD Mar 15, 2018 08:28
[2018-03-15] MEDS: POLYETHYLENE GLYCOL 3350 17 GM PACKET. PO SCH (08:45)
[2018-03-15] MEDS: PARoxetine 20 MG TABLET PO SCH (08:45)
--- NOTE | 2018-03-15 09:32 | PDOC ---
LINDSAY JAMISNO APRN 03/15/18 0932: SURGICAL PROGRESS NOTE Subjective tolerating soft diet + flatus, some small amount of stool no pain, no bloating Vital Signs Vital Signs Date Time Temp Pulse Resp B/P (MAP) Pulse Ox O2 Delivery O2 Flow Rate FiO2 03/15/18 07:00 97.8 91 18 127/79 (95) 97 Room Air 97.8 I&O Intake and Output 03/15/18 07:00 Intake Total 1020 ml Output Total 0 ml Balance 1020 ml Intake Oral 1020 ml Output Urine Total 0 ml # Voids 4 General: Alert, Oriented X3, Cooperative, No acute distress Abdomen: Soft, No tenderness Problem List Problems Medical Problems: (1) Abdominal hernia Status: Acute (2) Small bowel obstruction Status: Acute Assessment/Plan improved dc home FOSTER AREVALO MD 03/15/18 1033: SURGICAL PROGRESS NOTE Assessment/Plan Pt seen and examined. Agree with Ms. Jamison's note Pt feels well, inés PO, having stools abd soft, ND, NTTP OK to d/c f/u PRN LINDSAY JAMISON APRN Mar 15, 2018 09:32 FOSTER AREVALO MD Mar 15, 2018 10:33
[2018-03-15 10:45] VITALS: BP 120/60
--- NOTE | 2018-03-15 12:09 | DS ---
DATE OF DISCHARGE: 03/15/2018 CHIEF COMPLAINT: Diarrhea. HISTORY OF PRESENT ILLNESS: The patient is an 83-year-old female who presented to the Emergency Room with the above complaint. She reported the onset of multiple loose stools earlier on the day of admission. There was some mild abdominal pain accompanying this. She denied any recent emesis. Evaluation in the Emergency Room showed the patient to have a white blood count elevated to 25. A CT of the abdomen and pelvis showed a small-bowel obstruction with a non-incarcerated ventral hernia. Treatment was started and she was admitted for further care. HOSPITAL COURSE: The patient was seen in consultation by General Surgery who recommended conservative care. She was kept n.p.o. for the first 2 days with IV fluids for hydration. She had no emesis. Her abdominal pain gradually resolved. Her abdominal exam improved and she had the return of normal bowel sounds. Her diet was slowly advanced and she is now tolerating a regular diet with a good appetite. The patient has had multiple abdominal surgeries for hernia repair, so it is felt that adhesions are the most likely cause of her partial small-bowel obstruction. She has chronic constipation and treats this very well at home with daily MiraLax. She is advised to continue this. The patient's other chronic medical problems including chronic anxiety, mild memory loss and hypothyroidism are stable with her home medications. She has already received her flu shot this fall. She feels much better and is ready to return home today. FINAL DIAGNOSES: 1. Partial small-bowel obstruction, resolved. 2. Chronic constipation. 3. Chronic anxiety. 4. Mild memory loss. 5. Hypothyroidism. DISCHARGE MEDICATIONS: MiraLax 17 grams daily, aspirin 81 mg daily, calcium 600 mg b.i.d., levothyroxine 75 mcg daily, loratadine 10 mg daily, paroxetine 60 mg daily. Followup is with Dr. Valencia as needed. ERIKA VALENCIA MD DR: СЕРГЕЙ/sherman JOB#: [id number] / [id number] PETTY
== END 2018-03-15 14:06 | disposition home or self-care (01) | DRG 393 ==
LOC: ER 13:28 → ED HOLD 15:40 → 5 SOUTH 19:00
PROVIDERS: ADMIT Family Medicine; ATTEND Family Medicine
DX: K43.6 Other and unspecified ventral hernia with obstruction, without gangrene (principal); N17.0 Acute kidney failure with tubular necrosis; K56.51 Intestinal adhesions [bands], with partial obstruction; K52.9 Noninfective gastroenteritis and colitis, unspecified; E87.6 Hypokalemia; E03.9 Hypothyroidism, unspecified; E11.9 Type 2 diabetes mellitus without complications; F32.9 Major depressive disorder, single episode, unspecified; F41.9 Anxiety disorder, unspecified; K59.09 Other constipation; Q63.1 Lobulated, fused and horseshoe kidney; Z88.0 Allergy status to penicillin; Z88.8 Allergy status to other drugs, medicaments and biological substances; Z79.899 Other long term (current) drug therapy; Z87.891 Personal history of nicotine dependence; Z87.01 Personal history of pneumonia (recurrent); Z90.49 Acquired absence of other specified parts of digestive tract
CPT/HCPCS: 36415; 74022; 74177; 80047; 80048; 80076; 81001; 83605; 83690; 83735; 84132; 85007; 85025; 85027; 87045; 87177; 87493; 96360; 96361; J2405; J3010; J7030; Q9967; 99285-25

== ENCOUNTER 2018-05-03 15:59 | Emergency (ER) | payer MEDICARE ==
[~2018-05-03] VITALS: Ht 157.5 cm; Wt 64.0 kg
[~2018-05-03 15:59] MED LIST changes: +ASPI81TA50 PO; +CALC600T4 PO; +LACT1CAP21 PO; +LEVO75TA5 PO; +MULT-98 PO; +POLY17PO29 PO
--- NOTE | 2018-05-03 16:13 | PHYS DOC ---
Past Medical History Past Medical History: Pneumonia Additional Past Medical Histor: BOWEL OBSTRUCTIONS Past Surgical History: No Surgical History Additional Past Surgical Histo: MUTILPE BOWEL SURGERIES Alcohol Use: None Drug Use: None Adult General Chief Complaint Chief Complaint: DEPRESSION HPI HPI Patient is an 83-year-old female who presents to the emergency department for evaluation. It is unclear to me who called EMS. The patient states that she was on the phone with her son in [place], and she has had a falling out with him. She states that she is very tearful and sad because of this, and she is tearful upon arrival in the emergency department. She denies any thoughts of suicide, or thoughts of harming anyone else. She has no physical complaints at this time. EMS reported that family wanted the patient seen because "they thought she might need to get into assisted living". The patient has not had any abdominal pain, chest pain, nausea, vomiting, dizziness or lightheadedness. She does live alone. She has been able to take care of herself. There are no alleviating or exacerbating factors to her symptoms. At the moment, there are no other family members present in the emergency department. Review of Systems Review of Systems Constitutional: Denies fever or chills [] Eyes: Denies change in visual acuity, redness, or eye pain [] HENT: Denies nasal congestion or sore throat [] Respiratory: Denies pleuritic pain or shortness of breath . Does admit to a nonproductive cough.[] Cardiovascular:The patient denies any shortness of breath, chest pain, palpitations, or orthopnea [] GI: Denies abdominal pain, nausea, vomiting, bloody stools or diarrhea [] : Denies dysuria or hematuria [] Musculoskeletal: Denies back pain or joint pain [] Integument: Denies rash or skin lesions [] Neurologic: Denies headache, focal weakness or sensory changes [] Endocrine: Denies polyuria or polydipsia [] All other systems were reviewed and found to be within normal limits, except as documented in this note. Current Medications Current Medications Current Medications Medications (Trade) Dose Ordered Sig/Emily Start Time Stop Time Status Last Admin Dose Admin Potassium Chloride (Klor-Con) 40 meq 1X ONCE 05/03/18 17:30 05/03/18 17:31 DC 05/03/18 17:46 40 MEQ Allergies Allergies Allergies Coded Allergies Type Severity Reaction Last Updated Verified Penicillins Allergy Intermediate 09/07/13 Yes codeine Allergy Intermediate 09/07/13 Yes morphine Allergy Intermediate Hives 09/07/13 No piroxicam Allergy Intermediate 09/07/13 Yes procaine Allergy Intermediate 09/07/13 Yes propoxyphene Allergy Intermediate 09/07/13 Yes Physical Exam Physical Exam PHYSICAL EXAM: CONSTITUTIONAL: Well developed, well nourished HEAD: normocephalic, atraumatic EENT: PERRL, EOMI. Conjunctivae normal color, sclerae non-icteric; moist mucous membranes. NECK: Supple, non-tender; no meningismus. LUNGS: Lungs CTA, breathing even and unlabored. Normal air movement. HEART: Regular rate and rhythm, no murmur CHEST: No deformity; non-tender ABDOMEN: The abdomen is soft, and non-tender, no masses or bruits. EXTREM: Normal ROM; no deformity, no calf tenderness. Normal pulses palpable in all extremities. There is no pedal edema. SKIN: No rash; no diaphoresis NEURO: Alert; normal speech and cognition; CN's grossly intact; strength grossly intact without focal deficit. BACK: No CVA TTP. PSYCHIATRIC: The patient is tearful. Denies SI or HI. Current Patient Data Vital Signs Vital Signs Date Time Temp Pulse Resp B/P (MAP) Pulse Ox O2 Delivery O2 Flow Rate FiO2 05/03/18 16:30 99.0 91 18 175/77 (109) 96 Room Air 99.0 Lab Values Laboratory Tests Test 05/03/18 16:41 05/03/18 16:48 White Blood Count 9.0 x10^3/uL (4.0-11.0) Red Blood Count 4.52 x10^6/uL (3.50-5.40) Hemoglobin 13.2 g/dL (12.0-15.5) Hematocrit 38.1 % (36.0-47.0) Mean Corpuscular Volume 84 fL (79-100) Mean Corpuscular Hemoglobin 29 pg (25-35) Mean Corpuscular Hemoglobin Concent 35 g/dL (31-37) Red Cell Distribution Width 15.5 % (11.5-14.5) H Platelet Count 249 x10^3/uL (140-400) Neutrophils (%) (Auto) 74 % (31-73) H Lymphocytes (%) (Auto) 13 % (24-48) L Monocytes (%) (Auto) 12 % (0-9) H Eosinophils (%) (Auto) 0 % (0-3) Basophils (%) (Auto) 1 % (0-3) Neutrophils # (Auto) 6.7 x10^3uL (1.8-7.7) Lymphocytes # (Auto) 1.1 x10^3/uL (1.0-4.8) Monocytes # (Auto) 1.1 x10^3/uL (0.0-1.1) Eosinophils # (Auto) 0.0 x10^3/uL (0.0-0.7) Basophils # (Auto) 0.1 x10^3/uL (0.0-0.2) Sodium Level 137 mmol/L (136-145) Potassium Level 3.1 mmol/L (3.5-5.1) L Chloride Level 99 mmol/L (98-107) Carbon Dioxide Level 28 mmol/L (21-32) Anion Gap 10 (6-14) Blood Urea Nitrogen 14 mg/dL (7-20) Creatinine 1.2 mg/dL (0.6-1.0) H Estimated GFR (Cockcroft-Gault) 42.8 Glucose Level 198 mg/dL (70-99) H Calcium Level 9.4 mg/dL (8.5-10.1) Total Bilirubin 0.3 mg/dL (0.2-1.0) Direct Bilirubin 0.1 mg/dL (0.0-0.2) Aspartate Amino Transferase (AST) 22 U/L (15-37) Alanine Aminotransferase (ALT) 21 U/L (14-59) Alkaline Phosphatase 100 U/L (46-116) Total Protein 7.8 g/dL (6.4-8.2) Albumin 3.5 g/dL (3.4-5.0) Salicylates Level < 2.8 mg/dL (2.8-20.0) L Salicylate Last Dose Date Unknown Salicylate Last Dose Time Unknown Acetaminophen Level < 2 mcg/ml (10-30) L Acetaminophen Last Dose Date Unknown Acetaminophen Last Dose Time Unknown Ethyl Alcohol Level < 10 mg/dL (0-10) Urine Collection Type Unknown Urine Color Yellow Urine Clarity Clear Urine pH 6.0 Urine Specific Blairs 1.015 Urine Protein Negative mg/dL (NEG-TRACE) Urine Glucose (UA) Negative mg/dL (NEG) Urine Ketones (Stick) Trace mg/dL (NEG) Urine Blood Negative (NEG) Urine Nitrite Negative (NEG) Urine Bilirubin Negative (NEG) Urine Urobilinogen Dipstick 0.2 mg/dL (0.2 mg/dL) Urine Leukocyte Esterase Negative (NEG) Urine RBC 3-5 /HPF (0-2) Urine WBC 1-4 /HPF (0-4) Urine Squamous Epithelial Cells Few /LPF Urine Bacteria 0 /HPF (0-FEW) Urine Hyaline Casts Many /HPF Urine Mucus Marked /LPF Urine Opiates Screen Neg (NEG) Urine Methadone Screen Neg (NEG) Urine Barbiturates Neg (NEG) Urine Phencyclidine Screen Neg (NEG) Urine Amphetamine/Methamphetamine Neg (NEG) Urine Benzodiazepines Screen Neg (NEG) Urine Cocaine Screen Neg (NEG) Urine Cannabinoids Screen Neg (NEG) Urine Ethyl Alcohol Neg (NEG) Laboratory Tests 05/03/18 16:41 Laboratory Tests 05/03/18 16:41 EKG EKG [Normal sinus rhythm a rate of 92 beats for minute, normal axis, normal intervals, nonspecific ST/T changes.] Radiology/Procedures Radiology/Procedures [PROCEDURE: CHEST PA & LATERAL Chest, 2 views, 05/03/2018: HISTORY: Cough with phlegm Comparison is made to a study from 12/01/2017. The heart size is normal. There is a moderate sized gas containing hiatal hernia. No pulmonary infiltrate is seen. There is no evidence of pleural fluid. Moderate spurring is present in the spine. IMPRESSION: 1. Moderate sized hiatal hernia. 2. No acute cardiopulmonary abnormality is detected.] Course & Med Decision Making Course & Med Decision Making Pertinent Labs and Imaging studies reviewed. (See chart for details) [6:05 PM: The patient's condition remains stable. She is much more calm at this time. She has been seen by PAT coil binder, and although she has previously diagnosed depression, she does not require geriatric psychiatric admission. I did speak with the patient's PCP, as the patient's son wanted her admitted to the hospital because she does have periods of confusion and gets confused when taking her medications at times . The patient's PCP is very aware of this patient, as she has followed her for many years, and these concerns are not a new problem. Both myself and the patient's PCP did not agree that the patient needs hospitalization and there is certainly no medical indication to admit the patient to the hospital at this time. The patient has refused assisted living in the past according to her PCP, and I encouraged the patient and her son, who is certainly a source of conflict and stressing the patient's life as it is apparent during this emergency department stay, to follow-up with the patient's PCP for further evaluation and to see what other assistance and case management social worker the patient would benefit from in her home. Return precautions were discussed in detail.] Dragon Disclaimer Dragon Disclaimer This electronic medical record was generated, in whole or in part, using a voice recognition dictation system. Departure Departure Impression: Primary Impression: Depression Disposition: 01 HOME, SELF-CARE Condition: STABLE Referrals: ERIKA WALSH MD (PCP) Patient Instructions: Dementia, Depression, Adult RADHA BLACKMON MD May 03, 2018 16:13
[2018-05-03 16:52] LABS: BASO # 0.1 x10^3/uL (0.0-0.2); BASO % 1 % (0-3); EOS % 0 % (0-3); HEMATOCRIT 38.1 % (36.0-47.0); HEMOGLOBIN 13.2 g/dL (12.0-15.5); LYMPH # 1.1 x10^3/uL (1.0-4.8); LYMPH % 13 % (24-48); MEAN CORPUSCULAR HEMOGLOBIN 29 pg (25-35); MEAN CORPUSCULAR HGB CONC 35 g/dL (31-37); MEAN CORPUSCULAR VOLUME 84 fL (79-100); MONO # 1.1 x10^3/uL (0.0-1.1); MONO % 12 % (0-9); NEUT # 6.7 x10^3uL (1.8-7.7); NEUT % 74 % (31-73); PLATELET COUNT 249 x10^3/uL (140-400); RED BLOOD COUNT 4.52 x10^6/uL (3.50-5.40); RED CELL DISTRIBUTION WIDTH 15.5 % (11.5-14.5)
[2018-05-03 17:01] LABS: CALCIUM 9.4 mg/dL (8.5-10.1); CREATININE 1.2 mg/dL (0.6-1.0); GFR 42.8; POTASSIUM 3.1 mmol/L (3.5-5.1)
[2018-05-03 17:01] LABS: BILIRUBIN,URINE NEGATIVE (NEG); CLARITY,URINE CLEAR; COLOR,URINE YELLOW; NITRITE,URINE NEGATIVE (NEG); PROTEIN,URINE NEGATIVE (NEG-TRACE); UROBILINOGEN,URINE 0.2 mg/dL (0.2 mg/dL)
[2018-05-03 17:07] LABS: ACETAMIN < 2 mcg/ml (10-30); ETHANOL < 10 mg/dL (0-10); SALIC < 2.8 mg/dL (2.8-20.0)
--- NOTE | 2018-05-03 17:08 | RAD ---
Chest, 2 views, 05/03/2018: HISTORY: Cough with phlegm Comparison is made to a study from 12/01/2017. The heart size is normal. There is a moderate sized gas containing hiatal hernia. No pulmonary infiltrate is seen. There is no evidence of pleural fluid. Moderate spurring is present in the spine. IMPRESSION: 1. Moderate sized hiatal hernia. 2. No acute cardiopulmonary abnormality is detected. Electronically signed by: Walter Montgomery MD (05/03/2018 5:04 PM) [facility]
[2018-05-03 17:09] LABS: ALBUMIN 3.5 g/dL (3.4-5.0); DIRECT BILIRUBIN 0.1 mg/dL (0.0-0.2); TOTAL BILIRUBIN 0.3 mg/dL (0.2-1.0); TOTAL PROTEIN 7.8 g/dL (6.4-8.2)
[2018-05-03 17:10] LABS: AMPHETAMINE/METHAMPHETAMINE NEG (NEG); BARBITURATES NEG (NEG); BENZODIAZEPINES NEG (NEG); CANNABINOIDS NEG (NEG); COCAINE NEG (NEG); METHADONE NEG (NEG); OPIATES NEG (NEG); PHENCYCLIDINE NEG (NEG)
[2018-05-03 17:16] LABS: BACTERIA,URINE 0 /HPF (0-FEW); HYALINE CASTS, URINE MANY /HPF; SQUAMOUS EPITHELIAL CELL,UR FEW /LPF
[2018-05-03] MEDS ORDERED: POTASSIUM CHLORIDE 20 MEQ TABLET.ER. PO ONE (17:30)
--- NOTE | 2018-05-03 17:41 | EKG ---
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
[2018-05-03 18:15] VITALS: BP 164/72
== END 2018-05-03 18:18 | disposition home or self-care (01) ==
LOC: ER 15:59
DX: F32.9 Major depressive disorder, single episode, unspecified (principal); R05 Cough; K44.9 Diaphragmatic hernia without obstruction or gangrene; Z88.0 Allergy status to penicillin; Z88.5 Allergy status to narcotic agent; Z88.4 Allergy status to anesthetic agent; Z88.8 Allergy status to other drugs, medicaments and biological substances
CPT/HCPCS: 36415; 71046; 80048; 80076; 80307; 80329; 81001; 85025; 93005; 99284; G0480; G6039